=== PATIENT | female | born 1980 | race Caucasian/White ===

== ENCOUNTER 2019-02-25 21:06 | Emergency (ER) | payer MEDICAID, SELFPAY ==
[2019-02-25 21:08] VITALS: BP 147/94; PULSE 104; RESP 18; TEMP 36.8; O2SAT 97; BMI 33.7
[2019-02-25 22:12] VITALS: PULSE 89; RESP 15; O2SAT 99
--- NOTE | 2019-02-25 22:53 | ED.VIS.GEN ---
History of Present Illness Chief Complaint: Allergic Reaction Detail of Chief Complaint: Eczema and infection Informant: Patient Onset: Days Context: Gradual Onset Current Severity: Moderate Maximum Severity: Moderate Narrative: Patient has a history of eczema. She states that she was seen in urgent care mid last week because her eczema got worse and she got some skin infection from the lesions. She was started on Bactrim but did not start that until the evening of February 22. Since that time she has had increased itching and redness. She does not remember if she has ever been on Bactrim previously. She has not had fever or chills. She recently moved to this area does not have doctors in [place]. Past Medical History - Allergies and Home Meds Allergies/Adverse Reactions: Allergies No Known Allergies Allergy (Verified 02/25/19 21:08) Primary Care Physician: Ford Juarez MD [STAFF PHYSICIAN] - Prior records reviewed: Yes Past Medical History: - - Reviewed Smoking Status: Current every day smoker Review of Systems General: Denies: Chills, Fever Eyes: Denies: Visual changes - bilaterally ENT: Denies: Bilateral ear pain Cardiovascular: Denies: Chest pain Respiratory: Denies: Dyspnea Gastrointestinal: Denies: Abdominal pain, Nausea, Vomiting, Diarrhea Genitourinary: Denies: Dysuria Skin: Reports: Rash, Wounds Psych: Denies: Depression Hematologic: Denies: Easy bruising Allergy: Denies: Swelling of the mouth, Swelling of the tongue Physical Exam Vital Signs/Narrative: Vital Signs Temp Pulse Resp BP Pulse Ox 02/25/19 22:12 89 15 99 02/25/19 21:08 98.2 F 104 H 18 147/94 H 97 Inital Vital Signs reviewed: Yes General: Well nourished ENT: Moist mucous membranes Cardiovascular: Regular rate, Regular rhythm Respiratory: No distress, CTA bilaterally Abdomen: Soft, Nontender Skin: - - Patient has scattered areas of dry skin consistent with eczema. She also has multiple areas of folliculitis with small tiny pustules. The bilateral axilla have small, superficial cutaneous abscesses. Nothing that requires drainage at this time. She also has some generalized skin erythema with slight edema more consistent with allergic drug reaction. No intraoral lesions are noted. Neurological: Alert, Oriented x3 Psychological: Normal affect Diagnostic/Tx/Re-eval - Medical Decision Making Patient will be treated with Benadryl and prednisone. We will switch her antibiotic from Bactrim to clindamycin. She will be referred to dermatology here locally and she will call to see if her insurance is accepted. ED Disposition - Plan for ED Patient: Disposition: Home or Assisted Living Diagnosis: Eczema, Folliculitis, Cutaneous abscess, Allergic drug reaction Instructions: ABSCESS, Antiobiotic Treatment Only, ALLERGIC REACTION, Drug, Folliculitis Prescriptions: Clindamycin [Cleocin] 300 mg PO 4X/DAY #80 cap Prescription Printed Prednisone [Deltasone] 40 mg PO DAILY #10 tab Prescription Printed Referrals: Ford Juarez MD [STAFF PHYSICIAN] - Additional Instructions: STOP TAKING YOUR BACTRIM. You have been written for Clindamycin instead.
[2019-02-25] MEDS: DiphenhydrAMINE 25 MG Capsule 50 MG PO (23:06)
[2019-02-25] MEDS: predniSONE 20 MG Tablet 60 MG PO (23:06)
[2019-02-25 23:12] VITALS: PULSE 92; RESP 16; O2SAT 98
== END 2019-02-25 23:13 | disposition home or self-care (01) ==
PROVIDERS: Emergency Provider Emergency Medicine; Family Provider Family Medicine; PCP Family Medicine
DX: L30.9 Dermatitis, unspecified (principal); L73.9 Follicular disorder, unspecified; L02.412 Cutaneous abscess of left axilla; L02.411 Cutaneous abscess of right axilla; T36.8X5A Adverse effect of other systemic antibiotics, initial encounter; Y92.9 Unspecified place or not applicable; F17.200 Nicotine dependence, unspecified, uncomplicated
CPT/HCPCS: 99283

== ENCOUNTER 2019-02-27 22:27 | Emergency (ER) | payer MEDICAID, SELFPAY ==
[2019-02-27 22:29] VITALS: BP 168/119; PULSE 90; RESP 18; TEMP 37; O2SAT 99; BMI 33.8
--- NOTE | 2019-02-27 22:52 | ED.VIS.GEN ---
History of Present Illness Chief Complaint: Complaint Detail of Chief Complaint: dysuria Informant: Patient Onset: Today Context: Gradual Onset Timing: Intermittent Quality: burning Location: perineal Current Severity: Moderate Maximum Severity: Moderate Associated Symptoms: itchy rash upper chest, face; sore rash left axilla/chest wall Narrative: Patient states she has a history of eczema, boils, often times she gets flareups of both simultaneously and needs to do antibiotics and steroids. She was seen here initially for one such flareup with a painful rash in her left axilla and chest wall, she was put on Bactrim, and subsequently broke out in an itchy urticarial rash. She returned here and was seen again, the Bactrim was discontinued and she was placed on clindamycin as well as prednisone, she still has the itchy rash. She states these areas feels hot. She denies any fevers. No other new symptoms. No shortness of breath, lightheadedness or syncope, no peripheral edema. She states she was out in the sun but this was before she started either of these antibiotics, when she got a sunburn. - Past Medical History (1) Eczema Status: Chronic Past Medical History - Allergies and Home Meds Allergies/Adverse Reactions: Allergies No Known Allergies Allergy (Verified 02/25/19 21:08) Primary Care Physician: Liz Vail [Primary Care Provider] - Lives: Spouse/ Significant Other Smoking Status: Current every day smoker Drugs: None Review of Systems General: Reports: Malaise - I feel dehydrated. Denies: Chills, Fever, Sweats Cardiovascular: Denies: Chest pain, Heart racing Respiratory: Denies: Dyspnea, Cough Gastrointestinal: Denies: Abdominal pain, Nausea, Vomiting, Diarrhea, Melena, Hematochezia Genitourinary: Reports: Dysuria, Frequency. Denies: Hematuria Skin: Reports: Rash Neurological: Denies: Headache, Weakness, Numbness Physical Exam Vital Signs/Narrative: Vital Signs Temp Pulse Resp BP Pulse Ox 02/27/19 22:29 98.6 F 90 18 168/119 H 99 Inital Vital Signs reviewed: Yes General: Well nourished, Well developed, No Acute Distress Head: Normocephalic, Atraumatic Eyes: Perrl, EOMI. Negative for: Pale conjunctiva, Scleral icterus ENT: Moist mucous membranes, No rhinorrhea, - - POP clear. Negative for: Sinus tenderness Neck: Supple, Nontender, No lymphadenopathy Cardiovascular: Regular rate, Regular rhythm, No murmurs. Negative for: Tachycardia Respiratory: No distress, CTA bilaterally, Chest nontender Abdomen: Soft, Nontender, Nondistended, Normal bowel sounds Back: Nontender, Normal Inspection. Negative for: CVA tenderness Extremities: Nontender, No edema Skin: Normal color, No Trauma, Rash - Mildly tender follicular erythematous rash left axilla and chest wall. Scars consistent with hidradenitis suppurativa left axilla without any focal tenderness or fluctuance or abscess. The rest of her upper chest wall and anterior neck and face appears to be a coalescent urticarial rash that blanches without purpura or petechiae. Negative Nikolsky sign. No mucous membrane lesions. Neurological: Alert, Oriented x3, Cranial nerves II-XII grossly intact, Normal Strength, Normal Sensation, Normal Gait Psychological: Normal affect, Normal Mood Diagnostic/Tx/Re-eval Laboratory Tests 02/27/19 Range/Units 23:04 Urine Color Yellow (Yellow) Urine Clarity Sl. Cloudy (Clear) Urine pH 5.0 (5.0 - 8.0) Ur Specific [place] 1.025 (1.002-1.030) Urine Protein 30 H (Negative) mg/dl Urine Glucose (UA) Normal (Normal) mg/dl Urine Ketones 5 H (Negative) mg/dl Urine Occult Blood 50 H (Negative) /ul Urine Nitrite Negative (Negative) Urine Bilirubin Negative (Negative) mg/dL Urine Urobilinogen Normal (Normal) mg/dl Ur Leukocyte Esterase 500 H (Negative) /ul Urine RBC 5-10 SEEN (0-5) /hpf Urine WBC 25-50 SEEN (0-5) /hpf Ur Squamous Epith Cells 5-10 SEEN (5-10) /hpf Urine Bacteria 2+ (None Seen) /hpf Urine Mucus 0 SEEN (<or=2+) /hpf - Medical Decision Making Urinalysis is consistent with infection. This was sent for culture, she will be started on Macrobid which is less likely to give her reaction, diarrhea, or a yeast infection. She feels like she still has a boil even though it partially drained in her perineal area or groin. She does not want me to look at it. She gets these all the time she states, she feels that she still needs the oral antibiotics so I would continue the clindamycin until it is gone, and the prednisone as well. I do not think she has Saavedra-Jose syndrome. She could have had a drug rash from the sulfa which she discontinued and will not restart. She could also be having a photosensitivity reaction from the clindamycin. At this time I would continue that given the risks and benefits, and also the Macrobid for 5 days. She really wanted IV fluids because she felt dry and did not feel like drinking so we gave her a liter of fluids in addition. ED Disposition - Plan for ED Patient: Disposition: Home or Assisted Living Diagnosis: Acute cystitis without hematuria, Allergic drug rash Instructions: Bladder Infection, Female (Adult) Prescriptions: Nitrofurantoin Macrocrystals [Macrobid] 100 mg PO Q12 #10 cap Prescription Printed Referrals: Liz Vail [Primary Care Provider] - 3-5 Days
[2019-02-27 23:09] LABS: Mucous, Urine 0 SEEN /hpf (<or=2+)
[2019-02-27 23:11] LABS: Color, Urine Yellow (Yellow); Glucose, Dipstick Normal (Normal); Ketone-Dipstick 5 mg/dl (Negative); Leukocyte Esterase-Dipstick 500 /ul (Negative); Nitrite-Dipstick Negative (Negative); Occult Blood-Urine 50 /ul (Negative); Protein-Dipstick 30 mg/dl (Negative); Specific Gravity, Urine 1.025 (1.002-1.030); Urine Bilirubin Dipstick Negative (Negative); Urine Clarity Sl. Cloudy (Clear); Urine Urobilinogen Normal (Normal)
[2019-02-27] MEDS: 0.9% Normal Saline 1,000 ML 999 ML IV (23:11)
[2019-02-27] MEDS: DiphenhydrAMINE 50 MG/ML Syringe 25 MG IV (23:11)
[2019-02-27 23:17] LABS: Bacteria 2+ /hpf (None Seen); Red Blood Cells-Urine 5-10 SEEN /hpf (0-5); Squamous Epithelial Cells - UA 5-10 SEEN /hpf (5-10); White Blood Cells 25-50 SEEN /hpf (0-5)
[2019-02-28] MEDS: Nitrofurantoin Macrocrystals 100 MG Capsule PO
[2019-02-28 00:08] VITALS: BP 159/85; PULSE 53; RESP 16; O2SAT 100
--- NOTE | 2019-02-28 00:09 | ED.RN ---
REVIEWED D/C INSTRUCTIONS, FOLLOW UP CARE, PRESCRIPTION, AND S/S THAT WOULD WARRANT A RETURN TO THE ED WITH PT. PT VERBALIZED AN UNDERSTANDING AND DENIES FURTHER QUESTIONS FOR THIS RN. PT SKIN P/W/D, RESP EVEN AND UNLABORED, PT A&O X 3, NO DISTRESS NOTED. PT AMBULATED OUT OF ED, GAIT STEADY.
== END 2019-02-28 00:10 | disposition home or self-care (01) ==
PROVIDERS: Emergency Provider Emergency Medicine; Family Provider Family Medicine; PCP Family Medicine
DX: N30.00 Acute cystitis without hematuria (principal); L50.0 Allergic urticaria; F17.200 Nicotine dependence, unspecified, uncomplicated
CPT/HCPCS: 81001; 87086; 87088; 96361; 96374; 99284; J7030; A4216

== ENCOUNTER 2019-03-03 12:11 | Emergency (ER) | payer MEDICAID, SELFPAY ==
[2019-03-03 12:12] VITALS: BP 177/119; PULSE 102; RESP 16; TEMP 36.8; O2SAT 98; BMI 33.7
--- NOTE | 2019-03-03 12:46 | CT_ITS ---
STUDY: CT PELVIS WITH CONTRAST REASON FOR EXAM: Female, 38 years old. Swelling of the vulva, allergic reaction to medication for UTI RADIATION DOSAGE (If Supplied By Facility): CTDIvol = ( 28.20 ) mGy, DLP = ( 1209.25 ) mGycm TECHNIQUE: Transaxial imaging of the pelvis was performed without oral contrast. 100 IV Isovue 300 was administered intravenously. Individualized dose optimization techniques were used for this CT. COMPARISON: None. FINDINGS: Normal urinary bladder. Normal visualized small intestine. Normal visualized colon. There is no pelvic fluid. There is no pelvic lymphadenopathy or mass lesion. Normal visualized pelvic arteries. No focal fluid collection of the abdominal wall or vulvar region. There are reactive appearing lymph nodes in the bilateral inguinal creases with short axis measuring up to 1.2 cm. Normal osseous structures. CT/Pelvis WITH IV Contrast IMPRESSION: 1. No focal fluid collection. Reactive inguinal adenopathy. Electronically Signed: Scar Rajput MD ([place]) at 14:08 EDT , Service support ,
--- NOTE | 2019-03-03 12:46 | ED.VIS.GEN ---
History of Present Illness Chief Complaint: Female C/O Informant: Patient Onset: Days Current Severity: Moderate Maximum Severity: Moderate Narrative: Patient presents with complaint of vulvar pain and swelling. She is a history of severe eczema and hidradenitis. She was recently started on Bactrim at an outside facility. She presented here with what she believed was an allergic reaction. Antibiotics were switched to clindamycin and she was given prednisone. Patient states 2 days later she developed dysuria. She was seen back in the emergency room but refused a exam. Urine did show sign of infection and she was started on Macrobid. Patient presents back today saying the pain and swelling is worse. She is a hard time walking. She states it is so painful she has difficulty wiping and keeping herself clean. Past Medical History - Allergies and Home Meds Allergies/Adverse Reactions: Allergies sulfamethoxazole [From Bactrim] Allergy (Verified 03/03/19 12:15) Hives trimethoprim [From Bactrim] Allergy (Verified 03/03/19 12:15) Hives Primary Care Physician: Liz Vail [Primary Care Provider] - Prior records reviewed: Yes Past Medical History: - - Reviewed Smoking Status: Current every day smoker Review of Systems General: Reports: Chills. Denies: Fever Eyes: Denies: Visual changes - bilaterally ENT: Denies: Bilateral ear pain Cardiovascular: Denies: Chest pain Respiratory: Reports: Dyspnea Gastrointestinal: Denies: Abdominal pain, Nausea, Vomiting Genitourinary: Reports: Dysuria, - - Vulvar pain and swelling. Skin: Reports: Rash, Abscess Neurological: Denies: Headache Psych: Reports: Anxiety Endocrine: Denies: Polyuria, Polydipsia Allergy: Denies: Uticaria Physical Exam Vital Signs/Narrative: Vital Signs Temp Pulse Resp BP Pulse Ox 03/03/19 12:12 98.2 F 102 H 16 177/119 H 98 Inital Vital Signs reviewed: Yes General: Well nourished, Well developed Head: Normocephalic ENT: Moist mucous membranes Neck: Supple Cardiovascular: Regular rate, Regular rhythm Respiratory: No distress, CTA bilaterally Abdomen: Soft, Nontender : - - Patient has vulvar swelling bilaterally. Inner border of the labia majora are coated with what appears to be yeast and bacterial infection. I do not see lesions consistent with herpes. She does have a small palpable cutaneous abscess of the left lower mons. Skin: - - Mild skin dryness and erythema to the trunk and around her eyes consistent with her eczema outbreaks. Neurological: Alert, Oriented x3 Psychological: Tearful Diagnostic/Tx/Re-eval Impressions Pelvis CT 03/03/19 12:46 IMPRESSION: 1. No focal fluid collection. Reactive inguinal adenopathy. Electronically Signed: Scar Rajput MD ([place]) at 14:08 EDT , Service support , 03/03/19 12:46 CT Pel [Pelvis WITH IV Contrast] [CT] Stat Laboratory Results 03/03/19 03/03/19 03/03/19 13:00 13:00 13:00 WBC 13.5 H RBC 5.25 Hgb 16.0 H Hct 47.3 H MCV 90.1 MCH 30.5 MCHC 33.8 RDW Std Deviation 37.7 RDW Coeff of James 11.4 L Plt Count 219 MPV 9.9 Immature Gran % (Auto) 1.700 H Neut % (Auto) 69.6 Lymph % (Auto) 18.2 L [place] % (Auto) 9.5 Eos % (Auto) 0.6 Baso % (Auto) 0.4 Absolute Neuts (auto) 9.4 H Absolute Lymphs (auto) 2.46 Nucleated RBC % 0 Sodium 139 Potassium 3.6 Chloride 108 H Carbon Dioxide 26.0 Anion Gap 5 BUN 13 Creatinine 1.11 H Estim Creat Clear Calc 58.18 Est GFR (MDRD) Af Amer 70 Est GFR (MDRD) Non-Af 58 L BUN/Creatinine Ratio 11.7 Glucose 122 H Calcium 9.2 Serum , Qual NEGATIVE Urine Color Urine Clarity Urine pH Ur Specific [place] Urine Protein Urine Glucose (UA) Urine Ketones Urine Occult Blood Urine Nitrite Urine Bilirubin Urine Urobilinogen Ur Leukocyte Esterase Urine RBC Urine WBC Ur Squamous Epith Cells Urine Bacteria Urine Mucus Urine Yeast 03/03/19 14:44 WBC RBC Hgb Hct MCV MCH MCHC RDW Std Deviation RDW Coeff of James Plt Count MPV Immature Gran % (Auto) Neut % (Auto) Lymph % (Auto) [place] % (Auto) Eos % (Auto) Baso % (Auto) Absolute Neuts (auto) Absolute Lymphs (auto) Nucleated RBC % Sodium Potassium Chloride Carbon Dioxide Anion Gap BUN Creatinine Estim Creat Clear Calc Est GFR (MDRD) Af Amer Est GFR (MDRD) Non-Af BUN/Creatinine Ratio Glucose Calcium Serum , Qual Urine Color Straw Urine Clarity Sl. Cloudy Urine pH 6.5 Ur Specific [place] 1.015 Urine Protein 30 H Urine Glucose (UA) Normal Urine Ketones Negative Urine Occult Blood 250 H Urine Nitrite Negative Urine Bilirubin Negative Urine Urobilinogen Normal Ur Leukocyte Esterase 500 H Urine RBC 0-5 SEEN Urine WBC >100 SEEN Ur Squamous Epith Cells 10-25 SEEN Urine Bacteria 2+ Urine Mucus 0 SEEN Urine Yeast 1+ - Medical Decision Making Patient was initially given a small dose of Dilaudid and Phenergan for pain control. She was given p.o. Diflucan. Test results are reviewed with her. I believe she has vulvovaginitis secondary to yeast infection, likely secondary to her recent steroid and antibiotics. Her urine still shows sign of infection. She will stop Macrobid and take Cipro. I will send another urine culture as the last one was contaminated. Patient was advised of the importance of cleaning herself well. She will be written for clotrimazole cream which she is to apply twice a day. She will be given a prescription for another tab of Diflucan to take in 3 days. She will be referred to Dr. Adria Caal for follow-up as she does not have an CHILD NEUROLOGIST in this area established. ED Disposition - Plan for ED Patient: Disposition: Home or Assisted Living Diagnosis: Vulvovaginitis jens albicans, Cystitis Instructions: Vaginal Infection: Yeast (Candidiasis), Bladder Infection, Female (Adult) Prescriptions: Ciprofloxacin [Cipro] 500 mg PO BID #14 tablet Clotrimazole [Clotrimazole AF] 30 gm TP BID #1 tube Fluconazole [Diflucan] 150 mg PO X1 #1 tablet Hydrocodone Bitart/Apap 5-325 [Cabot 5MG-325MG] 1 tablet PO Q6H PRN PRN 3 Days #10 tablet PRN Reason: Pain Referrals: Caro Damian MD [STAFF PHYSICIAN] - 1 Week
[2019-03-03] MEDS: proMETHazine 25 MG/ML Syringe 12.5 MG IV (12:59)
[2019-03-03] MEDS: HYDROmorphone 1 MG/ML Syringe 0.5 MG IV (13:00)
[2019-03-03] MEDS: 0.9% Normal Saline 1,000 ML 150 ML IV (13:02)
[2019-03-03 13:11] LABS: Absolute Lymphocyte Count 2.46 X10^3/uL (0.83-4.51); Absolute Neutrophil Count 9.4 X10^3/uL (2.0-7.7); Basophil# 0.05 X10^3/uL; Basophil% 0.4 % (0-1); Eosinophil# 0.08 X10^3/uL; Eosinophils% 0.6 % (0-5); Hematocrit 47.3 % (37-47); Lymphocyte # 2.46 X10^3/ul (4.0); Lymphocyte % 18.2 % (19-41); Mean Corp Hgb Conc 33.8 g/dL (32-36); Mean Corpuscular Hgb 30.5 pg (27.0-32.0); Mean Corpuscular Volume 90.1 fL (81-99); Mean Platelet Vol. 9.9 fl (6.2-12.0); Monocyte# 1.29 X10^3/uL; Monocyte% 9.5 % (0-10); NRBC Flagged by Analyzer 0 % (0-5); Neutrophil # 9.43 X10^3/uL (2.7-7.7); Neutrophil % 69.6 % (47-70); Platelet Count 219 K/mm3 (150-450); RBC Distribution Width CV 11.4 % (11.6-14.6); RBC Distribution Width SD 37.7 fl (35.1-43.9); Red Blood Count 5.25 M/mm3 (4.2-5.4); White Blood Count 13.5 K/mm3 (4.4-11.0)
[2019-03-03 13:28] LABS: Internal QC Validated? YES +Cl - CLEAR BKGD; Pregnancy, Serum, hCG Quali. NEGATIVE Negative
[2019-03-03 13:32] LABS: Anion Gap 5 (5-15); BUN 13 mg/dL (7-18); BUN/Creat Ratio 11.7 RATIO (10-20); Calcium,Total 9.2 mg/dL (8.5-10.1); Chloride 108 mmol/L (98-107); Creatinine, Serum 1.11 mg/dL (0.55-1.02); EST Glomerular Filtration Rate 58 mL/min (>60); Est Glom Filt Rate - Afr Amer 70 mL/min (>60); Estimated Creatinine Clearance 58.18 ml/min; Glucose 122 mg/dL (74-106); Potassium 3.6 mmol/L (3.5-5.1); Sodium Level 139 mmol/L (136-145)
[2019-03-03] MEDS: Fluconazole 100 MG Tablet 200 MG PO (13:55)
[2019-03-03 14:12] VITALS: RESP 12
[2019-03-03 14:54] LABS: Mucous, Urine 0 SEEN /hpf (<or=2+)
[2019-03-03 14:57] LABS: Color, Urine Straw (Yellow); Glucose, Dipstick Normal (Normal); Ketone-Dipstick Negative (Negative); Leukocyte Esterase-Dipstick 500 /ul (Negative); Nitrite-Dipstick Negative (Negative); Occult Blood-Urine 250 /ul (Negative); Protein-Dipstick 30 mg/dl (Negative); Specific Gravity, Urine 1.015 (1.002-1.030); Urine Bilirubin Dipstick Negative (Negative); Urine Clarity Sl. Cloudy (Clear); Urine Urobilinogen Normal (Normal); Urine pH 6.5 (5.0 - 8.0)
[2019-03-03 15:10] LABS: White Blood Cells >100 SEEN /hpf (0-5)
[2019-03-03 15:12] LABS: Bacteria 2+ /hpf (None Seen); Red Blood Cells-Urine 0-5 SEEN /hpf (0-5); Squamous Epithelial Cells - UA 10-25 SEEN /hpf (5-10); Yeast-Urine 1+ /hpf (None Seen)
[2019-03-03] MEDS: Ceftriaxone 1 GM/50 ML BAG IV (16:04)
[2019-03-03 16:52] VITALS: BP 185/92; PULSE 55; RESP 16; O2SAT 98
== END 2019-03-03 16:53 | disposition home or self-care (01) ==
PROVIDERS: Emergency Provider Emergency Medicine; Family Provider Family Medicine; PCP Family Medicine
DX: B37.3 Candidiasis of vulva and vagina (principal); N30.90 Cystitis, unspecified without hematuria; L02.215 Cutaneous abscess of perineum; L73.2 Hidradenitis suppurativa; L30.9 Dermatitis, unspecified; F41.9 Anxiety disorder, unspecified; F17.200 Nicotine dependence, unspecified, uncomplicated
CPT/HCPCS: 72193; 80048; 81001; 84703; 85025; 87086; 87088; 96361; 96365; 96374; 96375; 99283; J7030; J7050; Q9967; A4216

== ENCOUNTER → 2019-10-25 13:09 | Outpatient (CLI) | payer MEDICAID, SELFPAY ==
[2019-10-25 15:13] LABS: Absolute Lymphocyte Count 2.26 X10^3/uL (0.83-4.51); Absolute Neutrophil Count 5.8 X10^3/uL (2.0-7.7); Basophil# 0.03 X10^3/uL; Basophil% 0.3 % (0-1); Eosinophil# 0.07 X10^3/uL; Eosinophils% 0.8 % (0-5); Hematocrit 49.4 % (37-47); Hemoglobin 16.1 g/dL (12.0-15.0); Lymphocyte # 2.26 X10^3/ul (4.0); Lymphocyte % 25.6 % (19-41); Mean Corp Hgb Conc 32.6 g/dL (32-36); Mean Corpuscular Hgb 30.6 pg (27.0-32.0); Mean Corpuscular Volume 93.9 fL (81-99); Mean Platelet Vol. 10.6 fl (6.2-12.0); Monocyte# 0.62 X10^3/uL; NRBC Flagged by Analyzer 0 % (0-5); Neutrophil # 5.78 X10^3/uL (2.7-7.7); Neutrophil % 65.6 % (47-70); Platelet Count 229 K/mm3 (150-450); RBC Distribution Width CV 11.7 % (11.6-14.6); RBC Distribution Width SD 40.2 fl (35.1-43.9); Red Blood Count 5.26 M/mm3 (4.2-5.4); White Blood Count 8.8 K/mm3 (4.4-11.0)
[2019-10-25 15:34] LABS: AST(SGOT) 13 U/L (15-37); Alanine Aminotransfer ALT/SGPT 27 U/L (13-56); Albumin, Serum 3.9 g/dL (3.2-5.0); Alkaline Phosphatase 90 U/L (45-117); Anion Gap 8 (5-15); BUN 9 mg/dL (7-18); BUN/Creat Ratio 9.5 RATIO (10-20); Calcium,Total 8.9 mg/dL (8.5-10.1); Chloride 104 mmol/L (98-107); Cholesterol 191 mg/dL (200); Creatinine, Serum 0.94 mg/dL (0.55-1.02); EST Glomerular Filtration Rate 69 mL/min (>60); Est Glom Filt Rate - Afr Amer 84 mL/min (>60); Globulin 3.4 g/dL (2.2-4.2); Glucose 149 mg/dL (74-106); High Density Lipoprotein 38 mg/dL; Potassium 3.8 mmol/L (3.5-5.1); Protein, Total 7.3 g/dL (6.4-8.2); Sodium Level 136 mmol/L (136-145); Triglycerides 122 mg/dL; Very Low Density Lipoprotein 24 mg/dL (5-40)
[2019-10-25 16:23] LABS: Hepatitis B Surface Antibody Non-Reactive; Hepatitis B Surface Antigen Non-Reactive (Nonreactive); Hepatitis C Antibody Non-Reactive (Nonreactive)
[2019-10-28 03:06] LABS: QNTFERON TB Mitogen Value > 10.00 IU/mL (.); QNTFERON TB Nil Value 0.01 IU/mL (.); QNTFERON TB1+ Ag Value 0.04 IU/mL (.); QNTFERON TB2+ Ag Value 0.02 IU/mL (.)
[2019-10-28 15:58] LABS: Hepatitis B Core Ab Total Negative (Negative); QNTIFERON TB Positive Criteria Negative (Negative)
== END ==
PROVIDERS: PCP Family Medicine; Referring Provider Physician Assistant Medical; Visit Provider Physician Assistant Medical
DX: L73.2 Hidradenitis suppurativa (principal); L20.84 Intrinsic (allergic) eczema; Z79.899 Other long term (current) drug therapy
CPT/HCPCS: 36415; 80048; 80061; 80076; 85025; 86480; 86704; 86706; 86803; 87340

== ENCOUNTER → 2020-11-10 14:29 | Outpatient (CLI) | payer OTHER, MEDICAID, SELFPAY ==
[2020-11-17 05:07] LABS: QNTFERON TB Mitogen Value > 10.00 IU/mL (.); QNTFERON TB Nil Value 0 IU/mL (.); QNTFERON TB1+ Ag Value 0 IU/mL (.); QNTFERON TB2+ Ag Value 0 IU/mL (.)
[2020-11-17 11:54] LABS: QNTIFERON TB Positive Criteria Negative (Negative)
== END ==
PROVIDERS: PCP Family Medicine; Referring Provider Physician Assistant Medical; Visit Provider Physician Assistant Medical
DX: L73.2 Hidradenitis suppurativa (principal); Z79.899 Other long term (current) drug therapy
CPT/HCPCS: 36415; 86480

== ENCOUNTER 2021-10-30 13:31 | Emergency (ER) | payer OTHER, MEDICAID, SELFPAY ==
[2021-10-30 13:32] VITALS: BP 194/113; PULSE 69; RESP 18; TEMP 36.1; O2SAT 100; BMI 30.9
--- NOTE | 2021-10-30 13:50 | CT_ITS ---
STUDY: CT ABDOMEN AND PELVIS WITHOUT CONTRAST REASON FOR EXAM: Female, 41 years old. Pain RADIATION DOSAGE (If Supplied By Facility): CTDIvol = ( 14.10 ) mGy, DLP = ( 686.69 ) mGycm TECHNIQUE: Transaxial images were obtained from the dome of the diaphragm to the symphysis pubis without oral contrast, and without intravenous contrast. Sagittal and coronal images were reconstructed. Individualized dose optimization techniques were used for this CT. COMPARISON: None. FINDINGS: The visualized lung bases are unremarkable. The visualized portions of the heart are within normal limits. There is decreased attenuation of the liver consistent with steatosis. Normal gallbladder and extrahepatic biliary system. Normal spleen. Normal pancreas. Normal bilateral adrenal glands. Slight right hydronephrosis and periureteral stranding within the mid right ureter calculus measuring 2-3 mm. Normal left kidney. Normal visualized stomach. Normal small intestine. There are multiple colonic diverticula consistent with diverticulosis. The appendix is visualized and appears normal. Normal abdominal aorta. Normal inferior vena cava. Normal retroperitoneum. Normal urinary bladder. Normal abdominal wall. Normal osseous structures. CT/Abdomen/Pelvis without Cont IMPRESSION: Trace right hydronephrosis with right mid ureter calculus (2-3 mm). Electronically Signed: Scar Rajput MD ([place]) at 16:04 EDT ,
--- NOTE | 2021-10-30 13:51 | EDS_ITS ---
HPI History of Present Illness Chief Complaint: Flank Pain Informant: patient Narrative Narrative: Patient presents with right flank pain. It sounds like it started a little bit yesterday but it bothered her a lot more last night and this morning. When the pain is bad she gets nauseated and has vomited a few times but no blood. It does radiate a little bit toward the front but mostly stays in the right posterior flank. She denies any urinary symptoms. She has had a kidney stone once years ago and this reminds her a bit of that. She has not had any biliary disease or cholecystectomy. No intra-abdominal surgeries. Nothing really makes the pain better or worse. Of note, patient states she was on medicines for diabetes and high blood pressure but she was not sure about it and has not been taking it for a long time. PFSH PFSH Home Medications clindamycin HCl 300 mg PO 4X/DAY #80 cap 02/25/19 [Rx Last Taken Unknown] prednisone 40 mg PO DAILY #10 tab 02/25/19 [Rx Last Taken Unknown] nitrofurantoin monohyd/m-cryst 100 mg PO Q12 #10 cap 02/27/19 [Rx Last Taken Unknown] ciprofloxacin HCl 500 mg PO BID #14 tab 03/03/19 [Rx Last Taken Unknown] clotrimazole 30 gm TP BID #1 tube 03/03/19 [Rx Last Taken Unknown] fluconazole 150 mg PO X1 #1 tab 03/03/19 [Rx Last Taken Unknown] ondansetron 4 mg PO Q8H PRN #10 tab 10/30/21 [Rx Last Taken Unknown] oxycodone-acetaminophen [Percocet] 1 tab PO Q6H PRN 3 Days #12 tab 10/30/21 [Rx Last Taken Unknown] tamsulosin [Flomax] 0.4 mg PO DAILY #7 cap 10/30/21 [Rx Last Taken Unknown] Allergy/AdvReac Type Severity Reaction Status Date / Time sulfamethoxazole Allergy Hives Verified 10/30/21 13:31 [From Bactrim] trimethoprim [From Bactrim] Allergy Hives Verified 10/30/21 13:31 Social History Smoking Status: Current every day smoker tobacco type: cigarettes ROS ROS ED Constitutional Constitutional ED: Denies chills or fever(s) ENT ENT ED: Denies rhinorrhea Cardiovascular Cardiovascular: Denies chest pain or palpitations Respiratory/Chest Respiratory/Chest: Denies cough or dyspnea Gastrointestinal Gastrointestinal: Reports nausea, vomiting and other Details: Right flank pain. See history of present illness. Genitourinary Genitourinary ED: Denies dysuria, hematuria or urinary frequency Musculoskeletal Musculoskeletal: Reports back pain; Denies myalgias Integumentary Denies rash Neurologic Neurologic: Denies headache(s), paresthesias or weakness Psychiatric Psychiatric: Denies anxiety or depression Endocrine Endocrinology: Denies polydipsia or polyuria Allergic/Immunologic Allergic/Immunologic ED: Denies urticaria EXAM Physical Exam Const Vital Signs: 10/30/21 13:32 10/30/21 14:25 10/30/21 15:22 Temperature 97 F L Temperature Source Temporal Pulse Rate 69 67 Respiratory Rate 18 16 Blood Pressure 194/113 H 123/74 H 143/89 H Blood Pressure Mean 140 90 107 Pulse Ox 100 100 100 Oxygen Delivery Method Room Air Room Air Room Air Positive well nourished and well developed General Appearance ED: well developed and NAD HEENT Reports moist mucous membranes Negative for trauma or tenderness Eyes General Eye ED: Negative for pale conjunctiva or scleral icterus Neck no JVD Chest Wall inspection of chest normal Resp No normal respiratory effort and clear to auscultation bilaterally Effort and Inspection: Negative for pain with movement Auscultation: Negative for rales, rhonchi or wheezes Cardio regular rate and regular rhythm GI normal to inspection, nondistended, normoactive bowel sounds, non-tender and non-distended GI Narrative: No tenderness including no tenderness at right upper or right lower quadrant. Palpation: soft Back/Spine Back/Spine Narrative: Mild CVA tenderness only with deep palpation. General Back: CVA tenderness Extremity normal to inspection Neuro Sensorium / Orientation: alert Psych mental status grossly normal Skin no rashes or lesions noted and no wounds Skin Narrative: No vesicles MDM MDM MDM Narrative Medical decision making narrative: Patient's labs show elevated hematocrit. This is likely from her history of COPD and smoking. Electrolytes show no marked abnormalities. No renal dysfunction. However, her glucose is quite elevated at 314. is negative. Urine shows red cells but no sign of infection. CT scan reviewed by me shows a right mid ureteral stone stone with some mild hydro-. As long as radiology sees no other acute process I think we get her home. Her pain is quite a bit better. Is starting to come back a little bit so I will give another dose of pain meds while she is here. Plan will be to get her home on medicines for pain nausea and Flomax. I discussed your blood sugar. She states she just got her prescription of meds in August. She has meds for blood pressure and diabetes. She just has not taken them because she has been resistant to accepting the diagnosis. She does not need prescriptions for further meds. I encouraged her to take these meds as prescribed. She states the doctor that prescribed them was an older doctor that she actually did not see regularly and she would like a new doctor I will refer her to somebody here. She certainly has freedom to follow-up with anyone she likes but she needs to follow-up to get both the renal stone issue managed as well as her diabetes and blood pressure. We also discussed reasons to return. CT reading did come back with mid ureteral 2 to 3 mm calculus with trace hydro-. Lab Data Attestation: I reviewed the patient's lab results. Labs: Laboratory Results - last 24 hr 10/30/21 10/30/21 10/30/21 14:14 14:14 14:14 WBC 11.9 H RBC 6.11 H Hgb 18.8 H* Hct 55.4 H MCV 90.7 MCH 30.8 MCHC 33.9 RDW Std Deviation 38.4 RDW Coeff of James 11.5 L Plt Count 216 MPV 10.3 Immature Gran % (Auto) 0.800 Neut % (Auto) 83.8 H Lymph % (Auto) 9.5 L Pasco % (Auto) 5.3 Eos % (Auto) 0.3 Baso % (Auto) 0.3 Absolute Neuts (auto) 10.0 H Absolute Lymphs (auto) 1.14 Nucleated RBC % 0 Diff Path Review May foll Sodium 133 L Potassium 4.1 Chloride 106 Carbon Dioxide 25.0 Anion Gap 2 L BUN 9 Creatinine 0.99 Estim Creat Clear Calc 63.27 Est GFR (MDRD) Af Amer 79 Est GFR (MDRD) Non-Af 65 BUN/Creatinine Ratio 9.1 L Glucose 314 H Calcium 8.9 Serum , Qual NEGATIVE Urine Color Urine Clarity Urine pH Ur Specific Abrams Urine Protein Urine Glucose (UA) Urine Ketones Urine Occult Blood Urine Nitrite Urine Bilirubin Urine Urobilinogen Ur Leukocyte Esterase Urine RBC Urine WBC Ur Squamous Epith Cells Urine Bacteria Urine Mucus 10/30/21 14:33 WBC RBC Hgb Hct MCV MCH MCHC RDW Std Deviation RDW Coeff of James Plt Count MPV Immature Gran % (Auto) Neut % (Auto) Lymph % (Auto) Pasco % (Auto) Eos % (Auto) Baso % (Auto) Absolute Neuts (auto) Absolute Lymphs (auto) Nucleated RBC % Diff Path Review Sodium Potassium Chloride Carbon Dioxide Anion Gap BUN Creatinine Estim Creat Clear Calc Est GFR (MDRD) Af Amer Est GFR (MDRD) Non-Af BUN/Creatinine Ratio Glucose Calcium Serum , Qual Urine Color Yellow Urine Clarity Clear Urine pH 6.0 Ur Specific Abrams 1.015 Urine Protein 30 H Urine Glucose (UA) 1000 H Urine Ketones 15 H Urine Occult Blood 250 H Urine Nitrite Negative Urine Bilirubin Negative Urine Urobilinogen Normal Ur Leukocyte Esterase 25 H Urine RBC 50-100 SEEN Urine WBC 0-5 SEEN Ur Squamous Epith Cells 0 SEEN Urine Bacteria 2+ Urine Mucus 0 SEEN Discharge Plan Triage Chief Complaint: Flank Pain ED Provider: Wilbur Pretty Dx/Rx/DC Orders Clinical Impression: Right kidney stone, Hyperglycemia, Hypertension Instructions: ED Hypertension New Begin Treatment, ED Kidney Stone w/ Colic Prescriptions: New oxycodone-acetaminophen [Percocet] 5-325 mg tablet 1 tab PO Q6H PRN (Reason: pain) 3 Days Qty: 12 RF: 0 ondansetron 4 mg tablet,disintegrating 4 mg PO Q8H PRN (Reason: nausea and vomiting) Qty: 10 RF: 0 tamsulosin [Flomax] 0.4 mg capsule 0.4 mg PO DAILY Qty: 7 RF: 0 No Action prednisone 20 MG tablet 40 mg PO DAILY Qty: 10 RF: 0 clindamycin HCl 150 MG capsule 300 mg PO 4X/DAY Qty: 80 RF: 0 nitrofurantoin monohyd/m-cryst 100 MG capsule 100 mg PO Q12 Qty: 10 RF: 0 ciprofloxacin HCl 500 MG tablet 500 mg PO BID Qty: 14 RF: 0 fluconazole 150 MG tablet 150 mg PO X1 Qty: 1 RF: 0 clotrimazole 30 GM cream 30 gm TP BID Qty: 1 RF: 2 Primary Care Provider: Liz Vail Referrals: Meli Rolle MD [STAFF PHYSICIAN] - 3-5 Days Liz Vail DO [Primary Care Provider] - As soon as possible Disposition Disposition: Home, Self Care
[2021-10-30] MEDS: Ketorolac 15 MG/ML Vial IV (14:07)
[2021-10-30] MEDS: 0.9% Normal Saline 1,000 ML 1000 ML IV (14:07)
[2021-10-30] MEDS: Morphine 4 MG/ML Syringe IV ×2 (14:08→16:13)
[2021-10-30] MEDS: Ondansetron 4 MG/2 ML Vial IV (14:08)
[2021-10-30 14:25] VITALS: BP 123/74; O2SAT 100
[2021-10-30 14:26] LABS: Absolute Lymphocyte Count 1.14 X10^3/uL (0.83-4.51); Basophil# 0.03 X10^3/uL; Basophil% 0.3 % (0-1); Eosinophil# 0.04 X10^3/uL; Eosinophils% 0.3 % (0-5); Hematocrit 55.4 % (37-47); Lymphocyte # 1.14 X10^3/ul (0.83-4.51); Lymphocyte % 9.5 % (19-41); Mean Corp Hgb Conc 33.9 g/dL (32-36); Mean Corpuscular Hgb 30.8 pg (27.0-32.0); Mean Corpuscular Volume 90.7 fL (81-99); Mean Platelet Vol. 10.3 fl (6.2-12.0); Monocyte# 0.63 X10^3/uL; Monocyte% 5.3 % (0-10); NRBC Flagged by Analyzer 0 % (0-5); Neutrophil % 83.8 % (47-70); Platelet Count 216 K/mm3 (150-450); RBC Distribution Width CV 11.5 % (11.6-14.6); RBC Distribution Width SD 38.4 fl (35.1-43.9); Red Blood Count 6.11 M/mm3 (4.2-5.4); White Blood Count 11.9 K/mm3 (4.4-11.0)
[2021-10-30 14:32] LABS: Hemoglobin 18.8 g/dL (12.0-15.0)
[2021-10-30 14:37] LABS: Anion Gap 2 (5-15); BUN 9 mg/dL (7-18); BUN/Creat Ratio 9.1 RATIO (10-20); Calcium,Total 8.9 mg/dL (8.5-10.1); Chloride 106 mmol/L (98-107); Creatinine, Serum 0.99 mg/dL (0.55-1.02); EST Glomerular Filtration Rate 65 mL/min (>60); Est Glom Filt Rate - Afr Amer 79 mL/min (>60); Estimated Creatinine Clearance 63.27 ml/min; Glucose 314 mg/dL (74-106); Potassium 4.1 mmol/L (3.5-5.1); Sodium Level 133 mmol/L (136-145)
[2021-10-30 14:44] LABS: Mucous, Urine 0 SEEN /hpf (<or=2+); Squamous Epithelial Cells - UA 0 SEEN /hpf (5-10)
[2021-10-30 14:52] LABS: Color, Urine Yellow (Yellow); Glucose, Dipstick 1000 mg/dl (Normal); Ketone-Dipstick 15 mg/dl (Negative); Leukocyte Esterase-Dipstick 25 /ul (Negative); Nitrite-Dipstick Negative (Negative); Occult Blood-Urine 250 /ul (Negative); Protein-Dipstick 30 mg/dl (Negative); Specific Gravity, Urine 1.015 (1.002-1.030); Urine Bilirubin Dipstick Negative (Negative); Urine Clarity Clear (Clear); Urine Urobilinogen Normal (Normal)
[2021-10-30 15:10] LABS: Bacteria 2+ /hpf (None Seen); Red Blood Cells-Urine 50-100 SEEN /hpf (0-5); White Blood Cells 0-5 SEEN /hpf (0-5)
[2021-10-30 15:19] LABS: Internal QC Validated? YES +Cl - CLEAR BKGD; Pregnancy, Serum, hCG Quali. NEGATIVE Negative
[2021-10-30 15:22] VITALS: BP 143/89; PULSE 67; RESP 16; O2SAT 100
[2021-10-30 16:16] VITALS: PULSE 64; O2SAT 99
[2021-11-01 13:22] LABS: Pathologist Review Reviewed
== END 2021-10-30 16:26 | disposition home or self-care (01) ==
PROVIDERS: Emergency Provider Emergency Medicine; PCP Family Medicine; Visit Provider Emergency Medicine
DX: N13.2 Hydronephrosis with renal and ureteral calculous obstruction (principal); J44.9 Chronic obstructive pulmonary disease, unspecified; E11.65 Type 2 diabetes mellitus with hyperglycemia; I10 Essential (primary) hypertension; R11.2 Nausea with vomiting, unspecified; Z87.442 Personal history of urinary calculi; F17.210 Nicotine dependence, cigarettes, uncomplicated
CPT/HCPCS: 74176; 80048; 81001; 84703; 85025; 96361; 96374; 96375; 96376; 99282; J7030; A4216; J2405

== ENCOUNTER → 2022-06-01 | Outpatient (CLI) | payer OTHER, MEDICAID, SELFPAY ==
[2022-06-01 15:13] LABS: Absolute Lymphocyte Count 2.02 X10^3/uL (0.83-4.51); Absolute Neutrophil Count 6.8 X10^3/uL (2.0-7.7); Basophil# 0.04 X10^3/uL; Basophil% 0.4 % (0-1); Eosinophil# 0.05 X10^3/uL; Eosinophils% 0.5 % (0-5); Hematocrit 51.3 % (37-47); Hemoglobin 17.1 g/dL (12.0-15.0); Lymphocyte # 2.02 X10^3/ul (0.83-4.51); Mean Corp Hgb Conc 33.3 g/dL (32-36); Mean Corpuscular Hgb 30.6 pg (27.0-32.0); Mean Corpuscular Volume 91.9 fL (81-99); Mean Platelet Vol. 10.5 fl (6.2-12.0); Monocyte# 0.69 X10^3/uL; Monocyte% 7.2 % (0-10); NRBC Flagged by Analyzer 0 % (0-5); Neutrophil # 6.76 X10^3/uL (2.7-7.7); Neutrophil % 70.1 % (47-70); Platelet Count 264 K/mm3 (150-450); RBC Distribution Width CV 11.8 % (11.6-14.6); RBC Distribution Width SD 39.7 fl (35.1-43.9); Red Blood Count 5.58 M/mm3 (4.2-5.4); White Blood Count 9.6 K/mm3 (4.4-11.0)
[2022-06-01 15:24] LABS: AST(SGOT) 6 U/L (15-37); Alanine Aminotransfer ALT/SGPT 19 U/L (13-56); Albumin, Serum 3.9 g/dL (3.2-5.0); Alkaline Phosphatase 116 U/L (45-117); Bilirubin, Direct 0.14 mg/dL (0.00-0.30); Protein, Total 7.9 g/dL (6.4-8.2)
[2022-06-02 09:28] LABS: HIV - WCH Non-Reactive (Nonreactive); Hepatitis B Surface Antibody Non-Reactive; Hepatitis B Surface Antigen Non-Reactive (Nonreactive); Hepatitis C Antibody Non-Reactive (Nonreactive)
[2022-06-03 18:07] LABS: QNTFERON TB Mitogen Value > 10.00 IU/mL (.); QNTFERON TB Nil Value 0 IU/mL (.); QNTFERON TB1+ Ag Value 0 IU/mL (.); QNTFERON TB2+ Ag Value 0 IU/mL (.)
[2022-06-06 13:32] LABS: Hepatitis B Core Ab Total Negative (Negative); QNTIFERON TB Positive Criteria Negative (Negative)
== END | disposition home or self-care (01) ==
PROVIDERS: PCP Family Medicine; Referring Provider Dermatology; Visit Provider Dermatology
DX: L40.0 Psoriasis vulgaris (principal); L40.8 Other psoriasis; L73.2 Hidradenitis suppurativa; L82.1 Other seborrheic keratosis; D18.01 Hemangioma of skin and subcutaneous tissue; Z71.89 Other specified counseling; Z79.899 Other long term (current) drug therapy
CPT/HCPCS: 36415; 80076; 85025; 86480; 86703; 86704; 86706; 86803; 87340

== ENCOUNTER → 2022-08-01 | Outpatient (CLI) | payer OTHER, MEDICAID, SELFPAY ==
[2022-08-01 18:06] LABS: ALB/GLOB Ratio 1.1 RATIO (0.9-2.4); AST(SGOT) 9 U/L (15-37); Alanine Aminotransfer ALT/SGPT 26 U/L (13-56); Alkaline Phosphatase 101 U/L (45-117); Anion Gap 12 (5-15); BUN 10 mg/dL (7-18); BUN/Creat Ratio 10.5 RATIO (10-20); Calcium,Total 9.5 mg/dL (8.5-10.1); Chloride 102 mmol/L (98-107); Creatinine, Serum 0.95 mg/dL (0.55-1.02); EST Glomerular Filtration Rate 68 mL/min (>60); Est Glom Filt Rate - Afr Amer 82 mL/min (>60); Globulin 3.6 g/dL (2.2-4.2); Glucose 202 mg/dL (74-106); Potassium 4.4 mmol/L (3.5-5.1); Protein, Total 7.6 g/dL (6.4-8.2); Sodium Level 138 mmol/L (136-145)
[2022-08-01 18:10] LABS: Hemoglobin A1c 8.6 % (3.8-5.6)
== END | disposition home or self-care (01) ==
PROVIDERS: PCP Family Medicine; Referring Provider Nurse Practitioner Women's Health; Visit Provider Nurse Practitioner Women's Health
DX: Z01.411 Encounter for gynecological examination (general) (routine) with abnormal findings (principal)
CPT/HCPCS: 36415; 80053; 83036

== ENCOUNTER → 2022-09-21 | Outpatient (CLI) | payer OTHER, MEDICAID, SELFPAY ==
--- NOTE | 2022-09-21 11:24 | RAD_ITS ---
STUDY: X-RAY - LUMBAR SPINE REASON FOR EXAM: Female, 42 years old. Pain. TECHNIQUE: 4 view(s) of the lumbar spine were obtained. COMPARISON: None FINDINGS: Normal lumbar lordosis. There is no substantial scoliosis. There is a normal alignment of the vertebrae. Normal vertebral bodies and endplates. Mild intervertebral disc space narrowing at L4-5 with small osteophytes. The soft tissue structures are unremarkable. RAD/L/S Spine Min 4 Views IMPRESSION: Mild spondylosis at L4-5. No other abnormality. Electronically Signed: Ned Arreola, at 14:26 EST ,
== END | disposition home or self-care (01) ==
PROVIDERS: Visit Provider Nurse Practitioner Family
DX: M54.17 Radiculopathy, lumbosacral region (principal); Z79.899 Other long term (current) drug therapy
CPT/HCPCS: 72110

== ENCOUNTER → 2022-10-19 | Outpatient (CLI) | payer OTHER, MEDICAID, SELFPAY ==
--- NOTE | 2022-10-19 13:41 | BI_ITS ---
MAMMOGRAPHY - BILATERAL SCREENING REASON FOR EXAM: Female, 42 years old. Routine annual screening examination. PERTINENT HISTORY: Aunt with breast cancer. TECHNIQUE: Digital bilateral breast juan pablo (3D mammographic acquisition) in the CC and MLO projections. 2-D mediolateral oblique (MLO) and craniocaudad (CC) views of both breasts were obtained. CAD: Full Field Digital Mammography with Computer Added Detection was performed. COMPARISON: None. Baseline examination. FINDINGS: Breast Composition: The breasts are heterogeneously dense, which may obscure small masses. There is a 1.6 cm x 2 cm nodular density in the upper lateral aspect of the left breast. Correlation with ultrasound is recommended for further evaluation. No other significant abnormalities are identified. BI/SCRN MAMM (CAD)W/JUAN PABLO BILAT IMPRESSION: 1.6 cm x 2 cm nodular density in the upper lateral aspect of the left breast. Correlation with ultrasound is recommended. ASSESSMENT CATEGORY: BIRADS Category 0: Incomplete. Need additional imaging evaluation. A letter regarding these results will be sent to the patient by the facility within 30 days. Approximately 10% of breast cancers are not detected by mammography. A normal mammogram should not delay biopsy of a clinically suspicious abnormality. [id number] Electronically Signed: Antonio Mane MD at 14:21 EDT ,
== END | disposition home or self-care (01) ==
LOC: OPBI 13:38
PROVIDERS: Visit Provider Nurse Practitioner Women's Health
DX: Z12.31 Encounter for screening mammogram for malignant neoplasm of breast (principal)
CPT/HCPCS: 77063; 77067

== ENCOUNTER → 2022-10-25 | Outpatient (CLI) | payer OTHER, MEDICAID, SELFPAY ==
--- NOTE | 2022-10-25 12:37 | US_ITS ---
STUDY: ULTRASOUND BREAST - LEFT REASON FOR EXAM: Female, 42 years old. Abnormal screening mammogram. TECHNIQUE: Axial and longitudinal images of the LEFT breast were performed with a high resolution ultrasound transducer. # OF IMAGES: 55 COMPARISON: Comparison is made with prior mammogram dated October 19, 2022. FINDINGS: LEFT Breast: The mammographic abnormality corresponds to a 2.1 cm x 1.3 cm x 1.8 cm cyst at the 1:00 position of the breast at 5 cm from nipple. There is a 7 mm x 6 mm x 4 mm hypoechoic complex septated cyst with irregular contour at the 2:00 position the breast at 4 cm from nipple. This is not a simple cyst. A biopsy is recommended for further evaluation. US/Breast Limited Unilateral IMPRESSION: The mammographic abnormality corresponds with 2.1 cm x 1.3 cm x 1.8 cm cyst at the 1:00 position of the breast at 5 cm from nipple. There is a 7 mm x 6 mm x 4 mm hypoechoic complex septated cyst with irregular contour at the 2:00 position of the breast at 4 cm from nipple. Biopsy recommended. ASSESSMENT CATEGORY: BIRADS Category 4: Suspicious - Biopsy Should Be Considered. A letter regarding these results will be sent to the patient by the facility within 30 days. Electronically Signed: Antonio Mane MD at 8:23 EDT ,
== END | disposition home or self-care (01) ==
LOC: OPUS 12:36
PROVIDERS: Visit Provider Nurse Practitioner Women's Health
DX: R92.8 Other abnormal and inconclusive findings on diagnostic imaging of breast (principal)
CPT/HCPCS: 76642

== ENCOUNTER → 2022-11-04 | Outpatient (CLI) | payer OTHER, MEDICAID, SELFPAY ==
--- NOTE | 2022-11-04 | BRBX_PTH ---
PATIENT: KYRA GAMBLE LOC: [facility] U#:[id number] AGE/SX: 42/F ROOM: RE11/04/[address]: Dr. Paul Erazo MD : 1980 BED: DIS: 11/04/2022 SPEC #: [id number] RECD: 11/04/22 13:24 STATUS: AAMIR QUIN #: [id number] DARY: 11/04/22 00:[address]: Paul Erazo DEPT: SURGICAL PATHOLOGY RECD BY: Melissa Crandall ENTERED: 11/04/22 13:47 SP TYPE: BREAST BX OTHR DR: No Primary Care Phys Tissues: Left breast, NOS Procedures: Surgery Specimen Level IV HEADER OPERATION: Ultrasound-guided left breast biopsy first lesion PRE-OP DIAGNOSIS: Left breast lesion TISSUE SUBMITTED: Lesion left breast ISCHEMIC TIME: 65 seconds FIXATION TIME: 56 hours MICROSCOPIC DIAGNOSIS Left breast lesion, ultrasound-guided core biopsy: Focal duct ectasia and suggestive of intraductal papilloma. Focal dense fibrosis. Negative for atypia or malignancy. See comment. MUNIR:inocencia 11/07/2022 COMMENT Correlation with clinical, radiologic findings and appropriate follow up are necessary. MICROSCOPIC DESCRIPTION Slides are reviewed. GROSS DESCRIPTION Received in fixative is one container labeled with the patient's name and designated left breast lesion. The specimen consists of multiple fragments of awan-yellow fibroadipose tissue that in aggregate measure 2.0 x 0.5 x 0.1 cm. The entire specimen is submitted in one cassette. / MUNIR:inocencia 11/04/2022 TC:5 CPT: 16344
--- NOTE | 2022-11-04 12:26 | US_ITS ---
ULTRASOUND GUIDED CORE BIOPSY REASON FOR EXAM: Female, 42 years old. ABNORMAL MAMMOGRAM PERTINENT HISTORY: Left breast biopsy COMPARISON: Ultrasound from 10/25/2022 TECHNIQUE: (All elements of maximal sterile barrier technique followed, including US elements as applicable) Procedure performed by Dr. Erazo Upon arrival to the breast imaging department the patient''s identification was confirmed and the LEFT breast was marked according to time-out protocol. Ultrasound guided core biopsy and clip placement, to include potential risks and complications, was explained in full to the patient. Written and verbal consent were obtained prior to initiation of the procedure. The LEFT breast was prepped and draped in standard sterile fashion and local anesthesia was obtained with 1% buffered lidocaine. A small dermatotomy was then made to introduce the core biopsy needle. Under ultrasound guidance multiple core samples were obtained with a 14 gauge needle and submitted in formalin for pathology. A titanium clip was then deployed into the biopsy cavity under ultrasound guidance. Upon completion of the procedure hemostasis was obtained and sterile dressing was applied. The patient tolerated the entire procedure without immediate complication and was discharged from the breast imaging department in good condition. US/US Breast Biopsy 1st Lesion IMPRESSION: Ultrasound guided core biopsy of a mass in the LEFT breast at 2:00, 4 cm from the nipple without complication. An addendum to this report will be rendered with appropriate recommendations when the pathology report is finalized. Electronically Signed: Malachi Hanks MD at 14:05 EDT ,
--- NOTE | 2022-11-04 13:10 | PCM.OPRPT ---
Report of Operation Date of Procedure: 11/04/22 Pre-Operative Diagnosis: Abnormal ultrasound of the left breast Post-Operative Diagnosis: Same Surgery/Procedure Performed:: Ultrasound-guided biopsy of the left breast mass with placement of clip Specimen's removed: Left breast biopsy Description of Procedure: Left breast was imaged downstairs and the tech was able to find the same lesion. An area lateral to this was prepped and draped in usual sterile fashion. Skin was injected with local anesthetic and then a small emmy was made with a scalpel. The biopsy needle was placed into the mass under ultrasound guidance several times and biopsies were obtained. A clip was placed into the mass and deployed. Pressure was held to maintain hemostasis. Next a Steri-Strip and bandage were placed over the incision. Postoperative instructions were given. Patient tolerated the procedure well.
== END | disposition home or self-care (01) ==
PROVIDERS: Referring Provider Surgery; Visit Provider Surgery
DX: N60.32 Fibrosclerosis of left breast (principal); N60.42 Mammary duct ectasia of left breast
CPT/HCPCS: 19083; 88305

== ENCOUNTER → 2023-12-13 | Outpatient (CLI) | payer OTHER, MEDICAID, SELFPAY ==
--- NOTE | 2023-12-13 14:00 | BI_ITS ---
MAMMOGRAPHY - BILATERAL SCREENING 3-D TOMOSYNTHESIS REASON FOR EXAM: Female, 43 years old. SCREENING PERTINENT HISTORY: No significant family history. TECHNIQUE: 2-D mammograms and 3-D Tomosynthesis of the breast (s) were performed. CAD was performed. COMPARISON: 10/19/2022 FINDINGS: The breast composition is heterogeneously dense that can obscure small breast masses. Scattered benign calcifications are seen. No dense spiculated masses or suspicious microcalcifications are identified. No architectural distortion is identified. There is no skin thickening or retraction. There has been no significant change since the prior study. BI/SCRN MAMM (CAD)W/JUAN PABLO BILAT IMPRESSION: No mammographic signs of malignancy. Routine yearly mammograms recommended. ASSESSMENT CATEGORY: BIRADS Category 1: Negative. A letter regarding these results will be sent to the patient by the facility within 30 days. FOLLOW UP RECOMMENDATION: Yearly follow up mammogram recommended. (A) Approximately 10% of breast cancers are not detected by mammography. A normal mammogram should not delay biopsy of a clinically suspicious abnormality. Electronically Signed: Reese Vila MD at 15:22 EDT ,
== END | disposition home or self-care (01) ==
LOC: OPBI 13:58
PROVIDERS: Referring Provider Nurse Practitioner Family; Visit Provider Nurse Practitioner Family
DX: Z12.31 Encounter for screening mammogram for malignant neoplasm of breast (principal)
CPT/HCPCS: 77063; 77067

== ENCOUNTER 2024-08-03 12:58 | Emergency (ER) | payer OTHER, MEDICAID, SELFPAY ==
[2024-08-03 12:59] VITALS: BP 161/133; PULSE 84; RESP 16; TEMP 36.2; O2SAT 100; BMI 28.6
--- NOTE | 2024-08-03 13:29 | EDS_ITS ---
HPI <MARIBELL Zamarripa - Last Filed: 08/03/24 13:46> History of Present Illness Chief Complaint: Rash Narrative Narrative: 43-year-old female has a chronic history of severe psoriasis. About a week and a half ago she developed a flare with psoriasis plaque in her right flexor elbow and redness and edema around both eyes. She states she often gets psoriasis flares around her eyes. She called her motorcycle police officer, Dr. Ford Juarez, who sent in doxycycline. She will finish the antibiotics tomorrow but it has not improved. She is here requesting a steroid shot as that has worked in the past. She denies fever or chills, open wounds or drainage, or visual changes. PFSH <MARIBELL Zamarripa - Last Filed: 08/03/24 13:46> PFSH Medical History Acid reflux Diabetes mellitus H/O renal calculi Hypertension Home Medications ?Medication ?Instructions ?Recorded ?Last Taken ?Type guselkumab 100 mg/mL subcutaneous 100 mg subcut Q2W 08/03/22 Unknown History auto-injector (Tremfya) sucralfate 1 gram tablet (Carafate) 1 g PO QACHS #60 tabs 08/03/22 Unknown Rx omeprazole 40 mg capsule,delayed See Rx Instructions .Route 03/01/23 Unknown Rx release .COMPLEX #90 caps Allergy/AdvReac Type Severity Reaction Status Date / Time sulfamethoxazole (From Allergy Hives Verified 08/03/24 13:02 Bactrim) trimethoprim (From Bactrim) Allergy Hives Verified 08/03/24 13:02 Social History Smoking Status: Current every day smoker tobacco type: cigarettes alcohol intake: never substance use type: does not use ROS <MARIBELL Zamarripa - Last Filed: 08/03/24 13:46> ROS ED ROS Narrative Constitutional: Negative for fever, chills, malaise. Eyes: Negative for visual change. Skin: Positive for rash. EXAM <MARIBELL Zamarripa - Last Filed: 08/03/24 13:46> Physical Exam Narrative Exam Narrative: CONST: Patient sitting in no acute distress. EYES: Normal inspection. ENT: Bilateral periorbital edema with dry red skin of upper and lower eyelids consistent with psoriasis. There is no warmth, fluctuance or crepitus. Globes appear normal, PERRL, EOMI, no drainage. NECK: Normal inspection. RESP: No respiratory distress, CTAB. SKIN: Dry red psoriasis plaque right flexor elbow. EXTREMITIES: Normal appearance, no pedal edema. NEURO: Alert and answering questions appropriately. PSYCH: Normal affect. Const Vital Signs: 08/03/24 12:59 Temperature 97.2 F L Temperature Source Temporal Pulse Rate 84 Respiratory Rate 16 Blood Pressure 161/133 H Blood Pressure Mean 142 Pulse Ox 100 Oxygen Delivery Method Room Air <Dr. Sean Waite DO - Last Filed: 08/03/24 14:06> Physical Exam Const Vital Signs: 08/03/24 12:59 Temperature 97.2 F L Temperature Source Temporal Pulse Rate 84 Respiratory Rate 16 Blood Pressure 161/133 H Blood Pressure Mean 142 Pulse Ox 100 Oxygen Delivery Method Room Air [facility] <MARIBELL Zamarripa - Last Filed: 08/03/24 13:46> [facility] Narrative Medical decision making narrative: Patient has a flare of psoriasis in the bilateral periorbital region and right elbow. She has had similar symptoms in the past. She is under the care of a motorcycle police officer for this. She has no signs of superimposed cellulitis or abscess. She is on doxycycline from her motorcycle police officer. I ordered an IM Kenalog shot as this has worked well for her in the past and she prefers this over oral steroids. I recommended close follow-up with her specialist and she was discharged in stable condition. <Dr. Sean Waite DO - Last Filed: 08/03/24 14:06> [facility] Narrative Medical decision making narrative: Patient has a flare of psoriasis in the bilateral periorbital region and right elbow. She has had similar symptoms in the past. She is under the care of a motorcycle police officer for this. She has no signs of superimposed cellulitis or abscess. She is on doxycycline from her motorcycle police officer. I ordered an IM Kenalog shot as this has worked well for her in the past and she prefers this over oral steroids. I recommended close follow-up with her specialist and she was discharged in stable condition. ED attending note: I evaluated the patient in conjunction with the [facility]. I agree with his/her statements and above findings. I have personally performed a face to face assessment of the patient and have reviewed the [facility] Note. I performed a substantive portion of the visit including all aspects of the following. I personally saw the patient performed chart review, physical exam, reviewed labs, imaging (if obtained), and formulated a treatment and management plan. This note was generated with [employer] dictation software. It may contain incorrect words, spelling, and punctuation that were not noted in review of the chart prior to signing. Discharge Plan Triage Chief Complaint: Rash ED Midlevel Provider: Liz Hodge ED Provider: Sean Waite Dx/Rx/DC Orders Clinical Impression: Psoriasis Instructions: ED Psoriasis Prescriptions: No Action Tremfya 100 mg/mL auto-injector 100 mg subcut Q2W sucralfate [Carafate] 1 gram tablet 1 g PO QACHS Qty: 60 0RF omeprazole 40 mg capsule,delayed release(DR/EC) See Rx Instructions .ROUTE .COMPLEX Qty: 90 0RF Dose Instruction: TAKE 1 CAPSULE BY MOUTH EVERY DAY Rx Instructions: TAKE 1 CAPSULE BY MOUTH EVERY DAY Primary Care Provider: Care Physician,No Primary Referrals: Care Physician,No Primary [Primary Care Provider] - Activity Restrictions/Additional Instructions: Follow-up with your motorcycle police officer. Print Language: Salvadorean Disposition Disposition: Home, Self Care
[2024-08-03] MEDS: Triamcinolone Acetonide 40 MG/ML Vial 60 MG IM (13:46)
== END 2024-08-03 14:18 | disposition home or self-care (01) ==
PROVIDERS: Emergency Provider Emergency Medicine; Visit Provider Emergency Medicine
DX: L40.9 Psoriasis, unspecified (principal); E11.9 Type 2 diabetes mellitus without complications; I10 Essential (primary) hypertension; K21.9 Gastro-esophageal reflux disease without esophagitis; Z79.899 Other long term (current) drug therapy; F17.210 Nicotine dependence, cigarettes, uncomplicated
CPT/HCPCS: 96372; 99282

== ENCOUNTER → 2024-11-26 | Outpatient (CLI) | payer OTHER, MEDICAID, SELFPAY | END | disposition home or self-care (01) | LOC: LABSPEC 16:14 | PROVIDERS: Referring Provider Physician Assistant; Visit Provider Physician Assistant | DX: L02.31 Cutaneous abscess of buttock (principal) | CPT/HCPCS: 87070; 87075; 87077; 87186; 87205 ==

== ENCOUNTER → 2025-06-24 | Outpatient (CLI) | payer OTHER, MEDICAID, SELFPAY ==
--- OUTSIDE RECORDS SUMMARY | 2025-06-24 16:52 | XMS RPT_ITS | CCD ---
Author Organization [facility] Care Team Providers Care Production Planner Name Role Phone Hannanagi Liz Priti Primary Care Provider [phone] Reese Mcfadden Primary Care Provider Unavailab Dr. Paul Ross Attending Provider Care Physician, No Primary Referring Provider Un available Reese Self Primary Care Provider Unava ilable Dr. Paul Erazo Attending Provider Care Physician, No Primary Referring Provider Un available Care Physician, No Primary Primary Care Provider Unavailable Dr. Sean Waite DO Attending Provider Dr. Sean Waite DO Emergency Provider Praveena Cook PA-C Attending Provider Medical [place] Primary Care Pro vider [facility] Referring Provid er Praveena Cook PA-C Referring Provider Care Physician, No Primary Primary Care Unava ilable Jennifer Addison Referring Unavailabl fernando Boss Jennifer Fernandez Attending Unavailabl e Praveena Clemons Referring Unavailable Praveena Clemons Attending Unavailable [facility] [place] [facility] Primary Care Unavailable Sean Waite Attending Unavailable Care Physician, No Primary Primary Care Unava ilable Praveena Clemons Attending Unavailable [facility] [place] [facility] Referring [facility] [place] [facility] Unavailable Praveena Clemons Attending Unavailable [facility] [place] [facility] Referring Unavailable [facility] [place] [facility] Primary Care Unavailable Allergies Allergy Classification Reported Allergen(s) Allergy Type Date of Onset Reaction(s) Facility (7 sources) Sulfamethoxazole Drug Allergy 2 [facility] (7 sources) Trimethoprim Drug Allergy 2 [facility] (1 source) Sulfamethoxazole Drug Allergy 5 [facility] (1 source) Trimethoprim Drug Allergy 5 [facility] Medications Current Medications Medication Drug Class(es) Dates Sig (Normalized) Sig (Original) 200 actuat albuterol 0.09 mg/actuat metered dose inhaler (2 sources) beta2-Adrenergic Agonist take 2 puff(s) by inhalation every six hours as needed for wheezing albuterol sulfate HFA 108 (90 BASE) MCG/ACT inhaler Inhale 2 puffs into the lungs every 6 hours as needed for Wheezing 0 Active amoxicillin 875 mg / clavulanate 125 mg oral tablet (1 source) Penicillin-class Antibacterial Start: 11-26-2024 Amoxicillin-Pot Clavulanate 875-125 mg tablet Active 1 {tbl} PO TWICE A DAY 12 05November 26, 2024 12:00am December 05, 2024 12:00am 60 actuat budesonide 0.16 mg/actuat / formoterol fumarate 0.0045 mg/actuat metered dose inhaler (2 sources) Corticosteroid, beta2-Adrenergic Agonist Start: 09-20-2018 take 2 puff(s) by mouth twice daily SYMBICORT 160-4.5 MCG/ACT AERO INHALE TWO PUFFS BY MOUTH TWO TIMES A DAY 3 09/20/2018 Active Cetirizine (2 sources) Histamine-1 Receptor Antagonist Cetirizine HCl (ZYRTEC PO) Take by mouth 3 times daily as needed 0 Active cyclobenzaprine hydrochloride 10 mg oral tablet (2 sources) Muscle Relaxant take 1 tablet by mouth three times daily as needed for muscle spasms cyclobenzaprine (FLEXERIL) 10 MG tablet Take 10 mg by mouth 3 times daily as needed for Muscle spasms 0 Active doxycycline hyclate 100 mg oral tablet (2 sources) Tetracycline-class Drug Start: 10-08-2018 take 1 tablet by mouth twice daily doxycycline hyclate (VIBRA-TABS) 100 MG tablet Take 1 tablet by mouth 2 times daily 28 tablet 0 10/08/2018 Active Completed/Discontinued Medications Medication Drug Class(es) Dates Sig (Normalized) Sig (Original) acetaminophen 325 mg / HYDROcodone bitartrate 5 mg oral tablet (7 sources) Opioid Agonist Start: 03-03-2019 End: 03-06-2019 Hydrocodone-Acetami nophen 1 TABLET tablet Discontinued 1 {tbl} PO EVERY 6 HOURS NEEDED as needed for Pain 10 3 March 03, 2019 March 05, 2019 12:00am March 06, 2019 12:08am Start: 03-03-2019 End: 03-06-2019 take 1 tablet by mouth every six hours as needed Hydrocodone-Acetaminophen Discontinued 1 TABLET PO EVERY 6 HOURS NEEDED 10 3 March 03, 2019 March 06, 2019 12:08am acetaminophen 325 mg / oxyCODONE hydrochloride 5 mg oral tablet (7 sources) Opioid Agonist Start: 10-30-2021 End: 08-03-2022 Oxycodone-Acetaminophen (Percocet) 5-325 mg tablet Discontinued 1 {tbl} PO EVERY 6 HOURS as needed for pain 12 3 October 30, 2021 August 03, 2022 2:06pm ciprofloxacin 500 mg oral tablet (7 sources) Quinolone Antimicrobial Start: 03-03-2019 End: 08-03-2022 take 1 tablet by mouth twice daily Ciprofloxacin Hcl 500 MG tablet Discontinued 500 mg PO TWICE A DAY 14 March 03, 2019 12:00am August 03, 2022 2:06pm clindamycin 150 mg oral capsule (7 sources) Lincosamide Antibacterial Start: 02-25-2019 End: 08-03-2022 take 2 capsules by mouth four times daily Clindamycin Hcl 150 MG capsule Discontinued 300 mg PO 4 TIMES DAILY 80 February 25, 2019 12:00am August 03, 2022 2:06pm Start: 02-25-2019 End: 08-03-2022 take 300 mg by mouth four times daily Clindamycin Hcl Discontinued 300 MG PO 4 TIMES DAILY 80 February 25, 2019 12:00am August 03, 2022 2:06pm clotrimazole 10 mg/ml topical cream (7 sources) Azole Antifungal Start: 03-03-2019 End: 08-03-2022 Clotrimazole 30 GM cream Discontinued 30 g TP TWICE A DAY 1 March 03, 2019 12:00am August 03, 2022 2:06pm fluconazole 150 mg oral tablet (7 sources) Azole Antifungal Start: 03-03-2019 End: 08-03-2022 take 1 tablet by mouth once Fluconazole 150 MG tablet Discontinued 150 mg PO ONE TIME March 03, 2019 12:00am August 03, 2022 2:06pm Take dose on 03/06/19. 1 ml guselkumab 100 mg/ml auto-injector (5 sources) Interleukin-23 Antagonist Start: 08-03-2022 End: 11-26-2024 Guselkumab (Tremfya) 100 mg/mL auto-injector Discontinued 100 mg SC every 2 weeks August 03, 2022 1:00am November 26, 2024 2:39pm nitrofurantoin, macrocrystals 25 mg / nitrofurantoin, monohydrate 75 mg oral capsule (7 sources) Nitrofuran Antibacterial Start: 02-27-2019 End: 08-03-2022 take 1 capsule by mouth every twelve hours Nitrofurantoin Monohyd/M-Cryst 100 MG capsule Discontinued 100 mg PO EVERY 12 HOURS February 27, 2019 12:00am August 03, 2022 2:06pm omeprazole 40 mg delayed release oral capsule (11 sources) Proton Pump Inhibitor Start: 08-03-2022 End: 11-26-2024 take 1 capsule by mouth once daily Omeprazole 40 mg capsule,delayed release(DR/EC) Discontinued 0 .ROUTE .COMPLEX March 01, 2023 7:40am November 26, 2024 2:39pm TAKE 1 CAPSULE BY MOUTH EVERY DAY ondansetron 4 mg disintegrating oral tablet (7 sources) Serotonin-3 Receptor Antagonist Start: 10-30-2021 End: 08-03-2022 take 1 tablet by mouth every eight hours as needed for nausea and vomiting Ondansetron 4 mg tablet,disintegrati ng Discontinued 4 mg PO Q8H as needed for nausea and vomiting October 30, 2021 12:00am August 03, 2022 2:06pm predniSONE 20 mg oral tablet (7 sources) Start: 02-25-2019 End: 08-03-2022 take 2 tablets by mouth once daily at mealtime Prednisone 20 MG tablet Discontinued 40 mg PO DAILY February 25, 2019 12:00am August 03, 2022 2:06pm With food Start: 02-25-2019 End: 08-03-2022 take 40 mg by mouth once daily at mealtime Prednisone Discontinued 40 MG PO DAILY February 25, 2019 12:00am August 03, 2022 2:06pm With food sucralfate 1000 mg oral tablet (5 sources) Aluminum Complex Start: 08-03-2022 End: 11-26-2024 take 1 tablet by mouth at bedtime Sucralfate (Carafate) 1 gram tablet Discontinued 1 g PO before meals and at bedtime 60 August 03, 2022 1:00am November 26, 2024 2:39pm tamsulosin hydrochloride 0.4 mg oral capsule (9 sources) alpha-Adrenergi c Dom Start: 10-30-2021 End: 08-03-2022 take 1 capsule by mouth once daily Tamsulosin (Flomax) 0.4 mg capsule Discontinued 0.4 mg PO DAILY October 30, 2021 12:00am August 03, 2022 2:05pm Start: 03-05-2018 take 1 capsule by mo uth once daily tamsulosin (FLOMAX) 0.4 MG capsule Take 1 capsule by mouth daily for 7 days 7 capsule 0 03/05/2018 Active Problems Active Problems Problem Classification Problem Date Documented Date Episodic/Chronic Abdominal pain (9 sources) Epigastric pain; Translations: [Epigastric pain] 08-03-2022 Episodic Allergic reactions (20 sources) Eruption due to drug; Translations: [Generalized skin eruption due to drugs and medicaments taken internally] 03-01-2019 Episodic Calculus of urinary tract (9 sources) Ureteric stone; Translations: [Kidney stone] Onset: 03-05-2018 03-05-2018 Episodic Diabetes mellitus without complication (5 sources) Diabetes mellitus; Translations: [Type 2 diabetes mellitus without complications] 08-03-2022 Chronic Diabetes mellitus without complication (7 sources) Hyperglycemia; Translations: [Hyperglycemia, unspecified] 11-07-2021 Episodic Esophageal disorders (9 sources) Gastroesophageal reflux disease; Translations: [Gastro-esophageal reflux disease without esophagitis] 08-03-2022 Chronic Essential hypertension (7 sources) Hypertensive disorder; Translations: [Essential (primary) hypertension] 11-07-2021 Chronic Mycoses (7 sources) Candidal vulvovaginitis; Translations: [Candidiasis of vulva and vagina] 03-04-2019 Episodic Other inflammatory condition of skin (1 source) Psoriasis; Translations: [Psoriasis, unspecified] 08-11-2024 Chronic Other skin disorders (7 sources) Folliculitis; Translations: [Follicular disorder, unspecified] 02-27-2019 Episodic Skin and subcutaneous tissue infections (10 sources) Abscess of skin and/or subcutaneous tissue; Translations: [Cutaneous abscess, unspecified] Onset: 12-01-2024 02-27-2019 Episodic Urinary tract infections (14 sources) Acute cystitis; Translations: [Acute cystitis without hematuria] 03-01-2019 Episodic Past or Other Problems Problem Classification Problem Date Documented Date Episodic/Chronic Other screening for suspected conditions (not mental disorders or infectious disease) (2 sources) Ultrasonography of breast abnormal; Translations: [Other abnormal and inconclusive findings on diagnostic imaging of breast] Onset: 12-22-2023 11-01-2022 Episodic Other skin disorders (2 sources) Hidradenitis; Translations: [Hidradenitis] Onset: 10-08-2018 10-08-2018 Episodic Other skin disorders (1 source) Rash and other nonspecific skin eruption; Translations: [Rash and other nonspecific skin eruption] Onset: 08-24-2024 Episodic Results Test Name Value Interpretation Reference Range Facility Surgery Visit Reporton 12-02 Surgery Visit Report [facility] [address] [place] [address] OFFICE VISIT Date of Service: 12/02/24 MR#: [id number] Acct: [id number] Name: KYRA GAMBLE Rep #: [id number] : 1980 Provider: KARL michel Age/Sex: 44/F Location: [facility] Status: Signed Intake Vital Signs 08/03/24 12:59 Height 5 ft 4 in Weight: 167 lb BMI 28.6 BP 161/133 H Respiration 16 Pulse 84 Temp 97.2 F L Temp Source Temporal Pulse Oximetry (%) 100 Intake Visit Reasons: WOUND CHECK Chief Complaint: woudn check Is patient in pain?: No Allergies sulfamethoxazole (From Bactrim) Allergy (Verified 12/02/24 14:10) Hives trimethoprim (From Bactrim) Allergy (Verified 12/02/24 14:10) Hives Medications ???Medication ???Instructions ???Recorded ???Confirmed ???Type amoxicillin 875 mg-potassium 1 tab PO BID 10 days #20 tabs 05/0 01/1512/02/24 Rx clavulanate 125 mg tablet Subjective Details: Patient is a 44 y/o F I am following s/p incision and drainage of right medial buttock abscess by myself on 11/26/24. Patient tolerated the procedure well. Patient notes feeling much improved since last week. She denies any further drainage. She notes the night of the procedure and the following day the open wound oozed out purulent material. She notes that she is able to comfortably sit and move. She is taking Augmentin x 10 days since the procedure. Culture returned as Staph pseudintermediu. Patient denies any further compliants today. Objective Details: Right gluteal region, medial aspect- incision slightly opened. No active purulent material noted. No bandage needed. No erythema and surrounding tissue is much softer. Coding Level of Care Code Global Post Op Diagnoses Abscess of buttock, right L02.31 [facility] Medical History Acid reflux Diabetes mellitus H/O renal calculi Hypertension Family History (Updated 11/26/24 @ 14:38 by Sylvie Stevens) Mother Diabetes Hypertension Father Hypertension Social History (Updated 11/26/24 @ 14:38 by Sylvie Stevens) Smoking Status: Current every day smoker tobacco type: cigarettes quit status: not considering quitting alcohol intake: never substance use type: does not use Assessment and Plan (No Qualifiers) Assessment and Plan (1) Abscess of buttock, right: Status: Acute Plan: Continue antibiotics Follow-up as needed 12/02/24 1415 Date Praveena Siegel Signature: Date (if applicable) CC: Normal [facility] Culture, Anaerobic Any Sourc neil 12-01-2024 CUAN No anaerobic bacteri a isolated. Normal [facility] Comment on above: Performed By: #### M 100.4001, M100.1999, M100.3000 #### [facility] [address] [place], [address] Wound Cultureon 11-28-2024 WC Staphylococcus pseudintermediu Amount Growth 2+ Staphylococcus pseudintermediu: REACTION Doxycycline Islt JANEY <=0.5 Clindamycin Islt JANEY <=0.12 S Clindamycin.induced Susc Islt NEG Erythromycin Islt JANEY <=0.25 S Gentamicin Islt JANEY <=0.5 S Linezolid Islt JANEY 1 S Oxacillin Susc Islt 1 R Tetracycline Islt JANEY <=1 S TMP SMX Islt JANEY <=10 S Vancomycin Islt JANEY <=0.5 S Normal [facility] Comment on above: Performed By: #### M 100.4001, M100.1999, M100.3000 #### [facility] [address] [place], [address] Gram Stainon 11-27-2024 GS Gram Stain 4+ White Blood Cells 2+ Gram positive rods No Epithelial cells Normal [facility] Comment on above: Performed By: #### M 100.4001, M100.1999, M100.3000 #### [facility] [address] [place], [address] Gram stainOrdered By: Praveena Cook on 11-26-2024 Microscopic observation Gram stain Nom (Unsp spec) [facility] Routine wound cultureOrdered By: Praveena Cook on 11-26-2024 Microbial culture, routine Staphylococcus pseudintermediu Abnormal [facility] Surgery Visit Reporton 11-26 Surgery Visit Report [facility] [address] [place] [address] OFFICE VISIT Date of Service: 11/26/24 MR#: [id number] Acct: [id number] Name: KYRA GAMBLE Rep #: [id number] : 1980 Provider: KARL michel Age/Sex: 44/F Location: [facility] Status: Signed Intake Vital Signs 08/03/24 12:59 Height 5 ft 4 in Intake Visit Reasons: BOIL ON BUTTOCKS Chief Complaint: abcess on buttock Is patient in pain?: Yes Allergies sulfamethoxazole (From Bactrim) Allergy (Verified 11/26/24 14:39) Hives trimethoprim (From Bactrim) Allergy (Verified 11/26/24 14:39) Hives Medications ???Medication ???Instructions ???Recorded ???Confirmed ???Type amoxicillin 875 mg-potassium 1 tab PO BID 10 days #20 tabs /0 01/1511/26/24 Rx clavulanate 125 mg tablet PFSH Medical History Acid reflux Diabetes mellitus H/O renal calculi Hypertension Family History (Updated 11/26/24 @ 14:38 by Sylvie Stevens) Mother Diabetes Hypertension Father Hypertension Social History (Updated 11/26/24 @ 14:38 by Sylvie Stevens) Smoking Status: Current every day smoker tobacco type: cigarettes quit status: not considering quitting alcohol intake: never substance use type: does not use HPI HPI HPI: Patient is a 44 y/o F who presents with a painful lump on her right buttock. She notes a history of hidradenitis. She follows with Dr. Juarez, dermatology. Patient notes the painful lump started last week. She notes typically her abscesses will spontaneously open and drain. She notes this one did not. She denies any fever. She notes it is very painful to sit. She is not currently on antibiotics. ROS General General: Yes weight change; No appetite, fatigue, colon cancer, breast cancer or weakness HEENT HEENT: No difficulty swallowing, eye injury, eye surgery, swollen glands or hoarseness Endo Endocrine: Yes diabetes mellitus; No thyroid disease, thyroid cancer, Hair loss, heat intolerance or cold intolerance Skin Skin: Yes rash; No changing moles Additional Details: abcess Musc Musculoskeletal: Yes back problems and arthritis; No rheumatoid arthritis, gout or joint pain Cardio Cardiovascular: Yes high blood pressure; No murmur, pacemaker, heart disease, atrial fibrillation, heart attack, heart stent, palpitations, shortness of breath with exertion or chest pain Psych Psychiatric: No depression, anxiety or hearing voices Resp Respiratory: No shortness of breath, No sleep apnea, No cough, Yes COPD, No asthma, No emphysema and No wheezing Gastro Gastrointestinal: Yes abdominal pain, No nausea or vomiting, No diarrhea, No constipation, No blood in stool, Yes acid reflux, No hemorrhoids, Yes ulcers, No gallbladder problem and No black,tarry stools Carl Hematologic: No blood thinners, No blood disorders, No bleeding, No anemia and No blood clots Neuro Neurologic: No system reviewed and no additional complaints, except as documented, No as per HPI, No abnormal gait, No abnormal hearing, No abnormal movements, No abnormal speech, No behavioral changes, No burning sensations, No confusion, No convulsions, No disequilibrium, No dizziness, No localized weakness, No frequent falls, No headache(s), No lack of coordination, No loss of vision, No memory loss, No numbness, No other visual disturbances, No radicular pain, No restless legs, No sensory deficit, No syncope, No tingling, No tremor(s), No weakness and No other Exam GI Other: Right gluteus- medial portion of the gluteus was noted to have a firm erythematous, tender lump consistent with an abscess Office Procedures I D Provider Documentation Provider Documentation: Procedure note Procedure: Incision and Drainage of infected right gluteal abscess Permit: Procedure, benefits, risks (include those of bleeding, infection, injury, anesthesia, and allergic reaction), and alternatives explained to the patient who voiced understanding of the information. Their questions were sought and answered. Patient agreed to proceed with the incision and drainage of infected right gluteal abscess. Permit signed and in chart. Indication: Infected right gluteal abscess Physician: Praveena Cook PA-C Nurse: Sylvie Stevens LPN Description: Patient positioned prone on the procedure table. Area prepped with Betadine and draped in a sterile fashion. Local anesthetic administered with 7 cc of 0.5% Marcaine and 1% lidocaine. An 18 gauge needle was used to aspirate out 7 cc of purulent bloody fluid. A linear incision was made and a large amount of purulent, malodorous fluid was expressed. Cavity was probed to break up any pockets. Culture was obtained. Cavity was packed with 1/4 iodoform packing. Surrounding area was (more content not included)... Normal [facility] Emergency Department Summary on 08-03-2024 Emergency Department Summary [facility] Medical Records Department [address] [place] [address] Emergency Department Summary 08/03/24 MR#: [id number] Acct: [id number] Name: KYRA GAMBLE Rep #: [id number] : 1980 43 From: Liz REYNA PCP: Care Physician,No Primary Status:DEP ER Location: ED HPI History of Present Illness Chief Complaint: Rash Narrative Narrative: 43-year-old female has a chronic history of severe psoriasis. About a week and a half ago she developed a flare with psoriasis plaque in her right flexor elbow and redness and edema around both eyes. She states she often gets psoriasis flares around her eyes. She called her breakfast server, Dr. Ford Juarez, who sent in doxycycline. She will finish the antibiotics tomorrow but it has not improved. She is here requesting a steroid shot as that has worked in the past. She denies fever or chills, open wounds or drainage, or visual changes. [facility] Medical History Acid reflux Diabetes mellitus H/O renal calculi Hypertension Home Medications ???Medication ???Instructions ???Recorded ???Last Taken ???Type guselkumab 100 mg/mL subcutaneous 100 mg subcut Q2W 08/03/22 Unknown History auto-injector (Tremfya) sucralfate 1 gram tablet (Carafate) 1 g PO QACHS #60 tabs 08/03/22 Unknown Rx omeprazole 40 mg capsule,delayed See Rx Instructions .Route 03/01/23 Unknown Rx release .COMPLEX #90 caps Allergy/AdvReac Type Severity Reaction Status Date / Time sulfamethoxazole (From Allergy Hives Verified 08/03/24 13:02 Bactrim) trimethoprim (From Bactrim) Allergy Hives Verified 08/03/24 13:02 Social History Smoking Status: Current every day smoker tobacco type: cigarettes alcohol intake: never substance use type: does not use ROS ROS ED ROS Narrative Constitutional: Negative for fever, chills, malaise. Eyes: Negative for visual change. Skin: Positive for rash. EXAM Physical Exam Narrative Exam Narrative: CONST: Patient sitting in no acute distress. EYES: Normal inspection. ENT: Bilateral periorbital edema with dry red skin of upper and lower eyelids consistent with psoriasis. There is no warmth, fluctuance or crepitus. Globes appear normal, PERRL, EOMI, no annette inage. NECK: Normal inspection. RESP: No respiratory distress, CTAB. SKIN: Dry red psoriasis plaque right flexor elbow. EXTREMITIES: Normal appearance, no pedal edema. NEURO: Alert and answering questions appropriately. PSYCH: Normal affect. Const Vital Signs: 08/03/24 12:59 Temperature 97.2 F L Temperature Source Temporal Pulse Rate 84 Respiratory Rate 16 Blood Pressure 161/133 H Blood Pressure Mean 142 Pulse Ox 100 Oxygen Delivery Method Room Air Physical Exam Const Vital Signs: 08/03/24 12:59 Temperature 97.2 F L Temperature Source Temporal Pulse Rate 84 Respiratory Rate 16 Blood Pressure 161/133 H Blood Pressure Mean 142 Pulse Ox 100 Oxygen Delivery Method Room Air [facility] Narrative Medical decision making narrative: Patient has a flare of psoriasis in the bilateral periorbital region and right elbow. She has had similar symptoms in the past. She is under the care of a breakfast server for this. She has no signs of superimposed cellulitis or abscess. She is on doxycycline from her breakfast server. I ordered an IM Kenalog shot as this has worked well for her in the past and she prefers this over oral steroids. I recommended close follow-up with her specialist and she was discharged in stable condition. [facility] Narrative Medical decision making narrative: Patient has a flare of psoriasis in the bilateral periorbital region and right elbow. She has had similar symptoms in the past. She is under the care of a breakfast server for this. She has no signs of superimposed cellulitis or abscess. She is on doxycycline from her breakfast server. I ordered an IM Kenalog shot as this has worked well for her in the past and she prefers this over oral steroids. I recommended close follow-up with her specialist and she was discharged in stable condition. ED attending note: I evaluated the patient in conjunction with the TROY. I agree with his/her statements and above findings. I have personally performed a face to face assessment of the patient and have reviewed the [facility] Note. I performed a substantive portion of the visit including all aspects of the following. I personally saw the patient performed chart review, physical exam, reviewed labs, imaging (if obtained), and formulated a treatment and management plan. This note was generated with [employer] dictation software. It may contain incorrect words, spelling, and punctuation that were n (more content not included)... Normal [facility] SCRN MAMM (CAD)W/JUAN PABLO BILATo n 12-13-2023 SCRN MAMM (CAD)W/JUAN PABLO BILAT [facility] [address] [place], [place] [address] SCRN MAMM (CAD)W/JUAN PABLO BILAT MR#: [id number] Acct: [id number] Name: KYRA GAMBLE Rep #: [id number] : 1980 F 43 From: Reese Vila MD PCP: Care Physician,No Primary Status: [facility] Study: SCRN MAMM (CAD)W/JUAN PABLO BILAT Date of Exam: 11/22 09/16 Exam# [id number] Ordering Dr: Jennifer Boss [facility] [employer] ANALYST-C [id number] MAMMOGRAPHY - BILATERAL SCREENING 3-D TOMOSYNTHESIS REASON FOR EXAM: Female, 43 years old. SCREENING PERTINENT HISTORY: No significant family history. TECHNIQUE: 2-D mammograms and 3-D Tomosynthesis of the breast (s) were performed. CAD was performed. COMPARISON: 10/19/2022 FINDINGS: The breast composition is heterogeneously dense that can obscure small breast masses. Scattered benign calcifications are seen. No dense spiculated masses or suspicious microcalcifications are identified. No architectural distortion is identified. There is no skin thickening or retraction. There has been no significant change since the prior study. BI/SCRN MAMM (CAD)W/JUAN PABLO BILAT IMPRESSION: No mammographic signs of malignancy. Routine yearly mammograms recommended. ASSESSMENT CATEGORY: BIRADS Category 1: Negative. A letter regarding these results will be sent to the patient by the facility within 30 days. FOLLOW UP RECOMMENDATION: Yearly follow up mammogram recommended. (A) Approximately 10% of breast cancers are not detected by mammography. A normal mammogram should not delay biopsy of a clinically suspicious abnormality. Electronically Signed: Reese Vila MD at 15:22 EDT , CC: [facility] Boss; No Primary Care Physician Phlebotomy Services Technician: Signed Normal [facility] Basophil percentageOrdered B y: CAMACHO ANN on 08-01-2022 Bilirubin [Mass/Vol] 1.00 mg/dL 0.20-1.00 [facility] Comment on above: For patients on eltr ombopag therapy, use of [place] TBIL is not recommended. Chloride [Moles/Vol] 102 mmol/L 98-107 [facility] Glucose [Mass/Vol] 202 mg/dL 74-106 [facility] Comment on above: Glucose result great er than or equal to 200 mg/dLsuggests DIABETES MELLITUS per A.D.A. criteria. Potassium [Moles/Vol] 4.4 mmol/L 3.5-5.1 [facility] Protein [Mass/Vol] 7.6 g/dL 6.4-8.2 [facility] Sodium [Moles/Vol] 138 mmol/L 136-145 [facility] Laboratory - Chemistry and C hemistry - challengeOrdered By: CAMACHO ANN on 08-01-2022 ALP [Catalytic activity/Vol] 101 U/L 45-117 [facility] ALT [Catalytic activity/Vol] 26 U/L 13-56 [facility] CO2 [Moles/Vol] 24.0 mmol/L 21.0-32.0 [facility] Globulin (S) [Mass/Vol] 3.6 g/dL 2.2-4.2 [facility] Urea nitrogen/Creatinine [Mass ratio] 10.5 mg/mg 10-20 [facility] No Panel InformationOrdered By: CAMACHO ANN on 08-01-2022 Estimated GFR (MDRD) Amer 82 mL/min >60 [facility] Comment on above: GFR Calc Estimated GFR (MDRD) Non-Af Amer 68 mL/min >60 [facility] Comment on above: Non- GFR Calc Serum or plasma albumin ely urement (mass/volume)Ordered By: CAMACHO ANN on 08-01-2022 Albumin [Mass/Vol] 4.0 g/dL 3.2-5.0 [facility] Serum or plasma albumin/glob ulin mass ratioOrdered By: CAMACHO ANN on 08-01-2022 Albumin/Globulin [Mass ratio] 1.1 {ratio} 0.9-2.4 [facility] Serum or plasma calcium ely urement (mass/volume)Ordered By: CAMACHO ANN on 08-01-2022 Calcium [Mass/Vol] 9.5 mg/dL 8.5-10.1 [facility] Serum or plasma creatinine m easurement (mass/volume)Ordered By: CAMACHO ANN on 08-01-2022 Creatinine [Mass/Vol] 0.95 mg/dL 0.55-1.02 [facility] Comment on above: The validity of the calculated GFR & GFRAA in patients over 70 years has not been determined. Clinical correlation is essential. Serum or plasma urea nitroge n measurement (mass/volume)Ordered By: CAMACHO ANN on 08-01-2022 Urea nitrogen [Mass/Vol] 10 mg/dL 7-18 [facility] Thin prep Papanicolaou smear with manual screeningOrdered By: CAMACHO ANN on 08-01-2022 Thin prep Papanicolaou smear with manual screening 9 U/L 15-37 [facility] Thin prep Papanicolaou smear with manual screening 12 5-15 [facility] Whole blood hemoglobin A1c/t otal hemoglobin ratio (mass fraction)Ordered By: CAMACHO ANN on 08-01-2022 HbA1c (Bld) [Mass fraction] 8.6 % 3.8-5.6 [facility] Comment on above: Normal < 5.7 % Predi abetic 5.7 - 6.4 % Diabetic >or= 6.5 % Please note range changes. Absolute lymphocyte countOrd ered By: Dr. Juarez on 06-01-2022 Lymphocytes Auto (Unsp spec) [#/Vol] 2.02 10*3/uL 0.83-4.51 [facility] Basophil percentageOrdered B y: Dr. Juarez on 06-01-2022 Basophils/100 WBC (Bld) 0.4 % 0-1 [facility] Bilirubin [Mass/Vol] 0.60 mg/dL 0.20-1.00 [facility] Comment on above: For patients on eltr ombopag therapy, use of [place] TBIL is not recommended. Eosinophils/100 WBC (Bld) 0.5 % 0-5 [facility] Neutrophils (Bld) [#/Vol] 6.8 10*3/uL 2.0-7.7 [facility] Neutrophils/100 WBC (Bld) 70.1 % 47-70 [facility] Protein [Mass/Vol] 7.9 g/dL 6.4-8.2 [facility] WBC (Bld) [#/Vol] 9.6 10*3/uL 4.4-11.0 [facility] Blood erythrocytes count (nu mber/volume)Ordered By: Dr. Juarez on 06-01-2022 RBC (Bld) [#/Vol] 5.58 10*6/uL 4.2-5.[address] [facility] Blood hemoglobin measurement (mass/volume)Ordered By: Dr. Juarez on 06-01-2022 Hemoglobin (Bld) [Mass/Vol] 17.1 g/dL 12.0-15.0 [facility] Blood lymphocytes/100 leukoc ytesOrdered By: Dr. Juarez on 06-01-2022 Lymphocytes/100 WBC (Bld) 21.0 % 19-41 [facility] Blood monocytes/100 leukocyt esOrdered By: Dr. Juarez on 06-01-2022 Monocytes/100 WBC (Bld) 7.2 % 0-10 [facility] Blood platelet mean volumeOr dered By: Dr. Juarez on 06-01-2022 Platelet mean volume (Bld) [Entitic vol] 10.5 fL 6.2-12.0 [facility] Determination of erythrocyte mean corpuscular volume (MCV)Ordered By: Dr. Juarez on 06-01-2022 MCV (RBC) [Entitic vol] 91.9 fL 81-99 [facility] Direct bilirubinOrdered By: Dr. Juarez on 06-01-2022 Bilirubin.direct [Mass/Vol] 0.14 mg/dL 0.00-0.30 [facility] HIV 1 and HIV-2 antibody ass ay with HIV-1 p24 antigen detectionOrdered By: Dr. Juarez on 06-01-2022 HIV 1+2 Ab+HIV1 p24 Ag IA Ql Non-Reactive Nonreactive [facility] Hematocrit Auto (Bld) [Volum e fraction]Ordered By: Dr. Juarez on 06-01-2022 Hematocrit (Bld) [Volume fraction] 51.3 % 37-47 [facility] Laboratory - Chemistry and C hemistry - challengeOrdered By: Dr. Juarez on 06-01-2022 ALP [Catalytic activity/Vol] 116 U/L 45-117 [facility] ALT [Catalytic activity/Vol] 19 U/L 13-56 [facility] Globulin (S) [Mass/Vol] 4.0 g/dL 2.2-4.2 [facility] Laboratory - Hematology and Cell countsOrdered By: Dr. Juarez on 06-01-2022 Erythrocyte distribution width (RBC) [Entitic vol] 39.7 fL 35.1-43.9 [facility] Erythrocyte distribution width (RBC) [Ratio] 11.8 % 11.6-14.6 [facility] Immature granulocytes/100 WBC (Bld) 0.800 % 0.0-0.9 [facility] Comment on above: IG% - Immature Granu locytes (promyelocytes, myelocytes and metamyelocytes) > 1% indicates that a LEFT SHIFT is Present. MCH (RBC) [Entitic mass] 30.6 pg 27.0-32.0 [facility] Nucleated RBC/100 WBC (Bld) [Ratio] 0 % 0-5 [facility] MCHC Auto (RBC) [Mass/Vol]Or dered By: Dr. Juarez on 06-01-2022 MCHC (RBC) [Mass/Vol] 33.3 g/dL 32-36 [facility] No Panel InformationOrdered By: Dr. Juarez on 06-01-2022 Hepatitis B Surface Antigen Non-Reactive Nonreactive [facility] Hepatitis C Antibody Non-Reactive Nonreactive [facility] Comment on above: Non Reactive: < 0.8 Equivocal: >/= 0.8 to < 1.0 Reactive: >/= 1.0The CDC recommends that a reactive/equivocal HCV antibody result be followed up by the HCV Nucleic Acid Amplificationtest (032443) Platelets bldOrdered By: Dr. Juarez on 06-01-2022 Platelets (Bld) [#/Vol] 264 10*3/uL 150-450 [facility] Qualitative QuantiFERON-TB g old in tube testOrdered By: Dr. Juarez on 06-01-2022 M. tuberculosis tuberculin stim IFN-g Ql (Bld) 0 IU/mL . [facility] Serum hepatitis B virus core antibody detectionOrdered By: Dr. Juarez on 06-01-2022 HBV core Ab Ql (S) Negative Negative [facility] Comment on above: Performed at: [facility] [employer] [address] [id number] Director: Izaiah Elena PhD, Phone: [phone] Serum hepatitis B virus surf aleja antibody IgG detectionOrdered By: Dr. Juarez on 06-01-2022 HBV surface IgG Ql (S) Non-Reactive [facility] Comment on above: Non Reactive: Incons istent with immunity less than <10 mIU/mL Reactive: Consistent with immunity greater than or equal to 10 mIU/mL Serum or plasma albumin ely urement (mass/volume)Ordered By: Dr. Juarez on 06-01-2022 Albumin [Mass/Vol] 3.9 g/dL 3.2-5.0 [facility] Thin prep Papanicolaou smear with manual screeningOrdered By: Dr. Juarez on 06-01-2022 Thin prep Papanicolaou smear with manual screening 6 U/L 15-37 [facility] Thin prep Papanicolaou smear with manual screening Comment . [facility] Comment on above: QuantiFERON-TB Gold Plus is a qualitative indirect test forM tuberculosis infection (including disease) and isintended for use in conjunction with risk assessment,radiography, and other medical and diagnostic evaluations.The QuantiFERON-TB Gold Plus result is determined bysubtracting the Nil value from either TB antigen (Ag)value. The Mitogen tube serves as a control for the test. Thin prep Papanicolaou smear with manual screening 0 IU/mL . [facility] Thin prep Papanicolaou smear with manual screening > 10.00 IU/mL . [facility] Thin prep Papanicolaou smear with manual screening Negative Negative [facility] Comment on above: No response to M tub erculosis antigens detected.Infection with M tuberculosis is unlikely, but high riskindividuals should be considered for additional testing(ATS/IDSA/CDC Clinical Practice Guidelines, 2017). Thereference range is an Antigen minus Nil result of <0.35IU/mL.The specimen received for QuantiFERON testing was incubatedby the ordering institution. Specific procedures outlinedin our Directory of Services and in the package insert forthe QuantiFERON Gold (In Tube) test must be followed toenable for proper stimulation of cells for the productionof interferon gamma. Chemiluminescence immunoassaymethodology Absolute lymphocyte counton 10-30-2021 Lymphocytes Auto (Unsp spec) [#/Vol] 1.14 10*3/uL 0.83-4.51 [facility] Work Phone: Basophil percentageon 2021 Basophil percentage 0-5 SEEN /hpf [facility] Work Phone: Basophils/100 WBC (Bld) 0.3 % 0-1 [facility] Work Phone: Chloride [Moles/Vol] 106 mmol/L 98-107 [facility] Work Phone: Eosinophils/100 WBC (Bld) 0.3 % 0-5 [facility] Work Phone: Glucose [Mass/Vol] 314 mg/dL 74-106 [facility] Work Phone: Comment on above: Glucose result great er than or equal to 200 mg/dLsuggests DIABETES MELLITUS per A.D.A. criteria. Neutrophils (Bld) [#/Vol] 10.0 10*3/uL 2.0-7.7 [facility] Work Phone: Neutrophils/100 WBC (Bld) 83.8 % 47-70 [facility] Work Phone: Potassium [Moles/Vol] 4.1 mmol/L 3.5-5.1 [facility] Work Phone: Sodium [Moles/Vol] 133 mmol/L 136-145 [facility] Work Phone: WBC (Bld) [#/Vol] 11.9 10*3/uL 4.4-11.[address] [facility] Work Phone: Beta hCG serum qualon 2021 Beta HCG ( test) Ql Negative [facility] Work Phone: Bilirubin Test strip Ql (U)o n 10-30-2021 Bilirubin Ql (U) Negative Negative [facility] Work Phone: Blood erythrocytes count (nu mber/volume)on 10-30-2021 RBC (Bld) [#/Vol] 6.11 10*6/uL 4.2-5.[address] [facility] Work Phone: Blood hemoglobin measurement (mass/volume)on 10-30-2021 Hemoglobin (Bld) [Mass/Vol] 18.8 g/dL 12.0-15.0 [facility] Work Phone: Comment on above: CRITICAL VALUE VERIF IED. CALLED TO AVILA LUTZ10/30/21 1432 Sujatha Matta.RESULTS READ BACK BY SAME . Blood lymphocytes/100 leukoc yteson 10-30-2021 Lymphocytes/100 WBC (Bld) 9.5 % 19-41 [facility] Work Phone: Blood monocytes/100 leukocyt eson 10-30-2021 Monocytes/100 WBC (Bld) 5.3 % 0-10 [facility] Work Phone: Blood platelet mean volumeon 10-30-2021 Platelet mean volume (Bld) [Entitic vol] 10.3 fL 6.2-12.0 [facility] Work Phone: Determination of erythrocyte mean corpuscular volume (MCV)on 10-30-2021 MCV (RBC) [Entitic vol] 90.7 fL 81-99 [facility] Work Phone: Hematocrit Auto (Bld) [Volum e fraction]on 10-30-2021 Hematocrit (Bld) [Volume fraction] 55.4 % 37-47 [facility] Work Phone: Ketones Test strip Ql (U)on 10-30-2021 Ketones Ql (U) 15 mg/dl Negative [facility] Work Phone: Laboratory - Chemistry and C hemistry - challengeon 10-30-2021 CO2 [Moles/Vol] 25.0 mmol/L 21.0-32.0 [facility] Work Phone: Urea nitrogen/Creatinine [Mass ratio] 9.1 mg/mg 10-20 [facility] Work Phone: Laboratory - Hematology and Cell countson 10-30-2021 Erythrocyte distribution width (RBC) [Entitic vol] 38.4 fL 35.1-43.9 [facility] Work Phone: Erythrocyte distribution width (RBC) [Ratio] 11.5 % 11.6-14.6 [facility] Work Phone: Immature granulocytes/100 WBC (Bld) 0.800 % 0.0-0.9 [facility] Work Phone: Comment on above: IG% - Immature Granu locytes (promyelocytes, myelocytes and metamyelocytes) > 1% indicates that a LEFT SHIFT is Present. MCH (RBC) [Entitic mass] 30.8 pg 27.0-32.0 [facility] Work Phone: Nucleated RBC/100 WBC (Bld) [Ratio] 0 % 0-5 [facility] Work Phone: MCHC Auto (RBC) [Mass/Vol]on 10-30-2021 MCHC (RBC) [Mass/Vol] 33.9 g/dL 32-36 [facility] Work Phone: Mucus LM Ql (Urine sed)on Mucus Ql (Urine sed) 0 SEEN /hpf [facility] Work Phone: Nitrite Test strip Ql (U)on 10-30-2021 Nitrite Ql (U) Negative Negative [facility] Work Phone: No Panel Informationon 10-30 Estimated Creatinine Clearance Calc 63.27 ml/min [facility] Work Phone: Estimated GFR (MDRD) Amer 79 mL/min >60 [facility] Work Phone: Comment on above: GFR Calc Estimated GFR (MDRD) Non-Af Amer 65 mL/min >60 [facility] Work Phone: Comment on above: Non- GFR Calc Platelets bldon 10-30-2021 Platelets (Bld) [#/Vol] 216 10*3/uL 150-450 [facility] Work Phone: Protein Test strip Ql (U)on 10-30-2021 Protein Ql (U) 30 mg/dl Negative [facility] Work Phone: Review by pathologiston Pathologist review Roger (Unsp spec) [Interp] November [facility] Work Phone: Serum or plasma calcium ely urement (mass/volume)on 10-30-2021 Calcium [Mass/Vol] 8.9 mg/dL 8.5-10.1 [facility] Work Phone: Serum or plasma creatinine m easurement (mass/volume)on 10-30-2021 Creatinine [Mass/Vol] 0.99 mg/dL 0.55-1.02 [facility] Work Phone: Comment on above: The validity of the calculated GFR & GFRAA in patients over 70 years has not been determined. Clinical correlation is essential. Serum or plasma urea nitroge n measurement (mass/volume)on 10-30-2021 Urea nitrogen [Mass/Vol] 9 mg/dL 7-18 [facility] Work Phone: Squamous epithelial cells de tection in urine sediment by light microscopyon 10-30-2021 Epithelial cells.squamous LM Ql (Urine sed) 0 SEEN /hpf [facility] Work Phone: Thin prep Papanicolaou smear with manual screeningon 10-30-2021 Thin prep Papanicolaou smear with manual screening 2 5-15 [facility] Work Phone: Urine blood detectionon RBC Ql (U) 250 /ul Negative [facility] Work Phone: RBC Ql (U) 50-100 SEEN /hpf [facility] Work Phone: Urine clarityon 10-30-2021 Clarity (U) Clear Clear [facility] Work Phone: Urine color determinationon 10-30-2021 Color (U) Yellow Yellow [facility] Work Phone: Urine glucose detectionon Glucose Ql (U) 1000 mg/dl Normal [facility] Work Phone: Urine leukocyte esterase det ection by dipstickon 10-30-2021 Leukocyte esterase Test strip Ql (U) 25 /ul Negative [facility] Work Phone: Urine pHon 10-30-2021 pH (U) 6.0 [pH] [facility] Work Phone: Urine sediment bacteria coun t by microscopy (number/high power field)on 10-30-2021 Bacteria LM.HPF (Urine sed) [#/Area] 2 /[HPF] None Seen [facility] Work Phone: Urine specific gravity measu rementon 10-30-2021 Specific gravity (U) [Rel density] 1.015 [facility] Work Phone: Urobilinogen Auto test strip Ql (U)on 10-30-2021 Urobilinogen Ql (U) Normal mg/dl Normal [facility] Work Phone: CR Chest PA/LATon 01-01-2020 CR Chest PA/LAT Patient Name: KYRA GAMBLE Diagnostic Radiology Exam Date/Time 01/01/2020 15:05:30 EDT Exam CR Chest PA/LAT Ordering Physician MD BOGDAN, REESE Avila Accession Number [id number] CPT4 Codes 16353 () Reason For Exam rib pain Report Indication: Rib pain. Comparison 10/04/2018 and 10/04/2018. FINDINGS: Chest two views and right ribs three views performed. The lungs are clear. No consolidation or major volume loss seen. Mediastinum unremarkable. No effusion. No fracture visualized. The etiology of patient's chest pain is uncertain. For persistent or progressive symptoms consider bone scan or CT chest. Report Dictated on Workstation: [id number] Final Dictating Physician: MD MITCHELL JOHN Signed Date and Time: 01/01/2020 3:25 pm Signed by: MD MITCHELL JOHN Transcribed Date and Time: 01/01/2020 3:26 Normal [facility] CR Ribs 2 Views Righton 12-22 CR Ribs 2 Views Right Patient Name: KYRA ALVARADO Diagnostic Radiology Exam Date/Time 01/01/2020 15:05:30 EDT Exam CR Ribs 2 Views Right Ordering Physician MD MCFADDEN RICHARD H Accession Number [id number] CPT4 Codes 25485 () Reason For Exam rib pain Report Indication: Rib pain. Comparison 10/04/2018 and 10/04/2018. FINDINGS: Chest two views and right ribs three views performed. The lungs are clear. No consolidation or major volume loss seen. Mediastinum unremarkable. No effusion. No fracture visualized. The etiology of patient's chest pain is uncertain. For persistent or progressive symptoms consider bone scan or CT chest. Report Dictated on Workstation: [id number] Final Dictating Physician: MD MITCHELL JOHN Signed Date and Time: 01/01/2020 3:25 pm Signed by: MD MITCHELL JOHN Transcribed Date and Time: 01/01/2020 3:26 Normal [facility] XR CHEST STANDARD (2 VW)on 0 01-01-2020 Patient Name: KYRA GAMBLE ---Diagnostic Radiology--- Exam Date/Time 01/01/2020 15:05:30 EDT Exam CR Chest PA/LAT Ordering Physician MD MCFADDEN RICHARD H Accession Number [id number] CPT4 Codes 95240 () Reason For Exam rib pain Report Indication: Rib pain. Comparison 10/04/2018 and 10/04/2018. FINDINGS: Chest two views and right ribs three views performed. The lungs are clear. No consolidation or major volume loss seen. Mediastinum unremarkable. No effusion. No fracture visualized. The etiology of patient's chest pain is uncertain. For persistent or progressive symptoms consider bone scan or CT chest. Report Dictated on Workstation: [id number] --- Final --- Dictating Physician: MD MITCHELL JOHN Signed Date and Time: 01/01/2020 3:25 pm Signed by: MD MITCHELL JOHN Transcribed Date and Time: 01/01/2020 3:26 [place], [place] [facility] Incoming Radiology Results From [facility] - 01/01/2020 3:27 PM EDT Patient Name: KYRA GAMBLE ---Diagnostic Radiology--- Exam Date/Time 01/01/2020 15:05:30 EDT Exam CR Chest PA/LAT Ordering Physician MD MCFADDEN RICHARD H Accession Number [id number] CPT4 Codes 57351 () Reason For Exam rib pain Report Indication: Rib pain. Comparison 10/04/2018 and 10/04/2018. FINDINGS: Chest two views and right ribs three views performed. The lungs are clear. No consolidation or major volume loss seen. Mediastinum unremarkable. No effusion. No fracture visualized. The etiology of patient's chest pain is uncertain. For persistent or progressive symptoms consider bone scan or CT chest. Report Dictated on Workstation: [id number] --- Final --- Dictating Physician: MD MITCHELL JOHN Signed Date and Time: 01/01/2020 3:25 pm Signed by: MD MITCHELL JOHN Transcribed Date and Time: 01/01/2020 3:26 [place] XR RIBS RIGHT (2 VIEWS)on Patient Name: KYRA GAMBLE ---Diagnostic Radiology--- Exam Date/Time 01/01/2020 15:05:30 EDT Exam CR Ribs 2 Views Right Ordering Physician MD MCFADDEN RICHARD H Accession Number [id number] CPT4 Codes 60064 () Reason For Exam rib pain Report Indication: Rib pain. Comparison 10/04/2018 and 10/04/2018. FINDINGS: Chest two views and right ribs three views performed. The lungs are clear. No consolidation or major volume loss seen. Mediastinum unremarkable. No effusion. No fracture visualized. The etiology of patient's chest pain is uncertain. For persistent or progressive symptoms consider bone scan or CT chest. Report Dictated on Workstation: [id number] --- Final --- Dictating Physician: MD MITCHELL JOHN Signed Date and Time: 01/01/2020 3:25 pm Signed by: MD MITCHELL JOHN Transcribed Date and Time: 01/01/2020 3:26 [place], [place] [facility] Incoming Radiology Results From [facility] - 01/01/2020 3:26 PM EDT Patient Name: KYRA GAMBLE ---Diagnostic Radiology--- Exam Date/Time 01/01/2020 15:05:30 EDT Exam CR Ribs 2 Views Right Ordering Physician MD BOGDAN, REESE Avila Accession Number [id number] CPT4 Codes 13587 () Reason For Exam rib pain Report Indication: Rib pain. Comparison 10/04/2018 and 10/04/2018. FINDINGS: Chest two views and right ribs three views performed. The lungs are clear. No consolidation or major volume loss seen. Mediastinum unremarkable. No effusion. No fracture visualized. The etiology of patient's chest pain is uncertain. For persistent or progressive symptoms consider bone scan or CT chest. Report Dictated on Workstation: [id number] --- Final --- Dictating Physician: MD MITCHELL JOHN Signed Date and Time: 01/01/2020 3:25 pm Signed by: MD MITCHELL JOHN Transcribed Date and Time: 01/01/2020 3:26 [place], [place] Progress Noteon 05-11-2018 Emergency Department Rn Authentication Interface Message Text Via family member, pt would like to try eucrisa for atopic derm, Rx sent. RK Normal [facility] Vital Signs Date Time Vital Sign Value Performing Clinician Quin delgadillo 08-03-2024 12:59-0500 Body height 162.56 cm No Primary Care Physician [facility] 08-03-2024 12:59-0500 Body mass index (BMI) [Ratio] 28.6 kg/m2 No Primary Care Physician [facility] 08-03-2024 12:59-0500 Body temperature 97.2 [degF] No Primary Care Physician [facility] 08-03-2024 12:59-0500 Body weight 75.74 kg No Primary Care Physician [facility] 08-03-2024 12:59-0500 Diastolic blood pressure 133 mm[Hg] No Primary Care Physician [facility] 08-03-2024 12:59-0500 Heart rate 84 /min No Primary Care Physician [facility] 08-03-2024 12:59-0500 Respiratory rate 16 /min No Primary Care Physician [facility] 08-03-2024 12:59-0500 SaO2% (BldA) [Mass fraction] 100 % No Primary Care Physician [facility] 08-03-2024 12:59-0500 Systolic blood pressure 161 mm[Hg] No Primary Care Physician [facility] 08-03-2022 13:04-0500 Body height 162.56 cm [facility] 08-03-2022 13:04-0500 Body mass index (BMI) [Ratio] 29.6 kg/m2 [facility] 08-03-2022 13:04-0500 Body temperature 97.2 [degF] [facility] 08-03-2022 13:04-0500 Body weight 78.24 kg [facility] 08-03-2022 13:04-0500 Diastolic blood pressure 121 mm[Hg] [facility] [facility] 13:04-0500 Heart rate 110 /min [facility] 08-03-2022 13:04-0500 Respiratory rate 20 /min [facility] 08-03-2022 13:04-0500 SaO2% (BldA) [Mass fraction] 96 % [facility] 08-03-2022 13:04-0500 Systolic blood pressure 162 mm[Hg] [facility] 10-30-2021 16:16-0400 Heart rate 64 /min [facility] Work Phone: 10-30-2021 16:16-0400 SaO2% (BldA) [Mass fraction] 99 % [facility] Work Phone: 10-30-2021 15:22-0400 Diastolic blood pressure 89 mm[Hg] [facility] Work Phone: 10-30-2021 15:22-0400 Respiratory rate 16 /min [facility] Work Phone: 10-30-2021 15:22-0400 Systolic blood pressure 143 mm[Hg] [facility] Work Phone: 10-30-2021 13:32-0400 Body height 162.56 cm [facility] Work Phone: 10-30-2021 13:32-0400 Body mass index (BMI) [Ratio] 30.9 kg/m2 [facility] Work Phone: 10-30-2021 13:32-0400 Body temperature 97 [degF] [facility] Work Phone: 10-30-2021 13:32-0400 Body weight 81.64 kg [facility] Work Phone: Encounters Encounter Date Encounter Type Care Provider Facility Start: 12-02-2024 End: 12-02-2024 ambulatory Praveena REYNA Facility:[facility] Start: 11-26-2024 End: 11-26-2024 ambulatory No Primary Care Physician [facility] Work Phone: Start: 11-26-2024 End: 11-26-2024 Patient encounter procedure Praveena Cook PA-C -Laboratory, Specimen Work Phone: Start: 11-26-2024 End: 11-26-2024 Patient encounter procedure Praveena Cook PA-C -[facility] Work Phone: Start: 11-26-2024 End: 11-26-2024 ambulatory Praveena REYNA Facility:[facility] Start: 11-26-2024 End: 11-26-2024 ambulatory Praveena REYNA Facility:[facility] Start: 08-03-2024 End: 08-03-2024 Emergency department patient visit Dr. Sean Waite DO -Emergency Department Work Phone: Start: 12-13-2023 End: 12-13-2023 ambulatory No Primary Care Physician Facility:[facility] Start: 10-25-2022 End: 10-25-2022 ambulatory [facility] Work Phone: Start: 10-25-2022 End: 10-25-2022 Patient encounter procedure [facility] Start: 10-19-2022 End: 10-19-2022 ambulatory [facility] Work Phone: Start: 10-19-2022 End: 10-19-2022 Patient encounter procedure [facility] Start: 09-21-2022 End: 09-21-2022 ambulatory [facility] Work Phone: Start: 09-21-2022 End: 09-21-2022 Patient encounter procedure [facility]Radiology, [facility] Start: 08-03-2022 End: 08-03-2022 Patient encounter procedure [facility] Start: 08-01-2022 End: 08-01-2022 ambulatory [facility] Work Phone: Start: 08-01-2022 End: 08-01-2022 Patient encounter procedure [facility] Start: 06-01-2022 End: 06-01-2022 ambulatory [facility] Work Phone: Start: 06-01-2022 End: 06-01-2022 Patient encounter procedure [facility] Start: 10-30-2021 End: 10-30-2021 Emergency department patient visit [facility]-Emergency Department Start: 01-22-2020 End: 01-22-2020 Subsequent hospital visit by physician Reese Mcfadden Work Phone: [facility] Comment on above: Arrived Start: 01-01-2020 End: 01-01-2020 Subsequent hospital visit by physician Reese Mcfadden Work Phone: [facility] Procedures Date Procedure Procedure Detail Performing Clinician Start: 11-26-2024 Gram stain microscopy N o Primary Care Physician Start: 11-26-2024 Microbial culture, routine No Primary Care Physician Start: 10-25-2022 Ultrasonography of breast Reese Mcfadden OLS Start: 10-19-2022 Screening mammography R ichkatie Mcfadden OLS Start: 09-21-2022 X-ray of lumbosacral spine Reese Mcfadden Start: 10-30-2021 CT of abdomen and pe lvis without contrast Start: 01-01-2020 Radex ribs unilatera l 2 views Reese Mcfadden Work Phone: Start: 01-01-2020 Radiologic exam ches t 2 views Reese Mcfadden Work Phone: Plan of Treatment Date Care Activity Detail Author Start: 11-26-2024 Source specific culture [facility] Start: 11-26-2024 Anaerobic microbial culture Anaerobic Culture [facility] Start: 08-03-2024 [facility] Start: 03-24-2020 Influenza vaccination [place], [place] Start: 2018 Lipid panel Lipid screen [place] Start: 09-18-2016 HbA1c (Bld) [Mass fraction] A1C test (Diabetic or Prediabetic) [place] Start: 1999 Screening for malignant neoplasm of cervix Cervical cancer screen [place], [place] Start: 1997 DTaP/Tdap/Td vaccine (1 - Tdap) DTaP/Tdap/Td vaccine (1 - Tdap) [place] Start: 1993 HIV screening HIV screen [place], [place] Start: 1984 Pneumococcal 0-64 years Vaccine (1 of 1 - PPSV23) Pneumococcal 0-64 years Vaccine (1 of 1 - PPSV23) [place], [place] Patient Education [facility] Work Phone: Patient referral [facility] Work Phone: Payers Date Payer Category Payer Self-pay [id number] 2023 Medicaid [id number] 2023 Private Health Insurance [id number] 2016 Unknown [employer] xxxxxxxxxxx 2016-Present [phone] [address] [place] [address] xxxxxxxxxxx [id number] Unknown [facility] [id number] Unknown [id number] Unknown [id number] Unknown [id number] Unknown [id number] Unknown 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 Start: 02-27-2019 Spouse/ Signif icant Other [facility] Start: 1980 Sex Assigned At Female W [facility] Evaluation note 11-26-2024 Note Date & Type Note Facility 11-26-2024 Evaluation note Diagnosis Onset Date Resolution Abscess of buttock, right acute November 26, 2024 1: 58pm [facility] Work Phone: Evaluation note Note Date & Type Note Facility Evaluation note No assessment information availa ble [facility] Work Phone: Evaluation note Note Date & Type Note Facility Evaluation note Diagnosis Onset Date Acid reflux acute Epigastric pain acute [facility] Work Phone: Reason for referral (narrative) Note Date & Type Note Facility Reason for referral (narrative) No reason for referral information available [facility] Work Phone: Summary Purpose Family History No Family History Records Found Relationship Condition Age at Onset Recorded Date/T tigre mother Diabetes mellitus Unknown Hypertension Unknown father Hypertension Unknown Advance Directives No Advanced Directives Records FoundDocuments on File Type Date Recorded 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 No August 03, 2024 2:49pm Chief Complaint and Reason for Visit Chief Complaint flank pain Chief Complaint ADOMINAL PAIN N/V Reason for Visit Acid reflux Epigastric pain Chief Complaint ADOMINAL PAIN N/V SCREENING ABNORMAL MAMMOGRAM Reason for Visit Acid reflux Epigastric pain Chief Complaint Admit Date RASH August 03, 2024 1 2:58pm BOIL ON BUTTOCKS November 26, 2024 1:58pm Reason for Visit Admit Date Abscess of buttock, right November 26, 2024 1:58pm Additional Source Comments INFORMATION SOURCE (unrecogn ized section and content) DATE CREATED AUTHOR 02/22/2019 [facility] DATE CREATED AUTHOR AUTHOR'S ORGANIZ ATION 02/08/2020 [facility] DATE CREATED AUTHOR AUTHOR'S ORGANIZ ATION 12/03/2024 [facility] Goals (unrecognized section and content) Goals may be documented in a n alternate sectionGoals may be documented in an alternate sectionGoals may be documented in an alternate sectionGoals may be documented in an alternate sectionGoals may be documented in an alternate sectionGoals may be documented in an alternate sectionGoals may be documented in an alternate section Care Teams (unrecognized sec tion and content) Team Status: Active Member Role Status Dates Dr. Liz Vail DO Family Provider Active No Primary Care Physician Primary Care Provider Active Team Status: Inactive Member Role Status Dates Reese Garciadarcy Primary Care Provider Active Dr. Paul Erazo MD Attending Provider Active No Primary Care Physician Referring Provider Active Team Status: Inactive Member Role Status Dates Reese Garciadarcy Primary Care Provider Active Dr. Ford Juarez MD Attending Provider, Referring Pro vider Active Team Status: Inactive Member Role Status Dates Reese Mcfadden Primary Care Provider Active CAMACHO ANN , HUMAN RESOURCES ANALYST-C Attending Provider, Referring Provider Active Team Status: Inactive Member Role Status Dates No Primary Care Physician Primary Care Provider Active Liz Ellsworth NP, HUMAN RESOURCES ANALYST-C Attending Provider Active Team Status: Inactive Member Role Status Dates Reese Mcfadden OLS Primary Care Provider Active Dr. Paul Erazo MD Attending Provider Active No Primary Care Physician Referring Provider Active Team Status: Inactive Member Role Status Dates CAMACHO ANN , HUMAN RESOURCES ANALYST-C Attending Provider Active No Primary Care Physician Primary Care Provider Active Team Status: Inactive Member Role Status Dates Reese Mcfadden OLS Primary Care Provider Active CAMACHO SETH , HUMAN RESOURCES ANALYST-C Attending Provider, Referring Provider Active Team Status: Active Member Role Status Dates No Primary Care Physician Primary Care Provider Active CAMACHO SETH , HUMAN RESOURCES ANALYST-C Attending Provider Active Team Status: Inactive Member Role Status Dates No Primary Care Physician Primary Care Provider Active CAMACHO SETH , HUMAN RESOURCES ANALYST-C Attending Provider Active Team Status: Active Member Role Status Dates Dr. Liz Vail DO Family Provider Active [facility] Primary Care Provider A ctive Team Status: Inactive Member Role Status Dates No Primary Care Physician Primary Care Provider Active Start: August 03, 2024 End: August 03, 2024 Dr. Sean Waite DO Attending Provider Active Start: August 03, 2024 End: August 03, 2024 Dr. Sean Waite DO Emergency Provider Active Start: August 03, 2024 End: August 03, 2024 Team Status: Inactive Member Role Status Dates Praveena REYNA PA-C Attending Provider Active Start: November 26, 2024 End: November 26, 2024 [facility] Primary Care Provider A ctive Start: November 26, 2024 End: November 26, 2024 [facility] Referring Provider Acti ve Start: November 26, 2024 End: November 26, 2024 Team Status: Inactive Member Role Status Dates [facility] Primary Care Provider A ctive Start: November 26, 2024 End: November 26, 2024 Praveena REYNA PA-C Attending Provider Active Start: November 26, 2024 End: November 26, 2024 Praveena REYNA PA-C Referring Provider Active Start: November 26, 2024 End: November 26, 2024 FOR RECORDS PERTAINING TO PATIENTS WHO ARE OR HAVE BEEN ENROLLED IN A CHEMICAL DEPENDENCY/SUBSTANCEABUSE PROGRAM, SOME INFORMATION MAY BE OMITTED. This clinical summary was aggregated from multiple sources. Caution should be exercised in using it in the provision of clinical care. This summary normalizes information from multiple sources, and as a consequence, information in this document may materially change the coding, format and clinical context of patient data. In addition, data may be omitted in some cases. CLINICAL DECISIONS SHOULD BE BASED ON THE PRIMARY CLINICAL RECORDS. [employer] provides no warranty or guarantee of the accuracy or completeness of information in this document.
[2025-06-24 16:56] LABS: Color, Urine Yellow (Yellow); Glucose, Dipstick Normal (Normal); Ketone-Dipstick Negative (Negative); Leukocyte Esterase-Dipstick Negative /ul (Negative); Nitrite-Dipstick Negative (Negative); Occult Blood-Urine 25 /ul (Negative); Protein-Dipstick 15 mg/dl (Negative); Specific Gravity, Urine 1.015 (1.002-1.030); Urine Bilirubin Dipstick Negative (Negative)
[2025-06-24 16:58] LABS: Hematocrit 49.7 % (37-47); Hemoglobin 16.5 g/dL (12.0-15.0); Immature Granulocytes Count 0.030 X10^3/uL (0.0-0.0); Mean Corp Hgb Conc 33.2 g/dL (32-36); Mean Corpuscular Volume 90.9 fL (81-99); Mean Platelet Vol. 10.7 fl (6.2-12.0); NRBC Flagged by Analyzer 0 % (0-5); Platelet Count 223 K/mm3 (150-450); RBC Distribution Width CV 11.9 % (11.6-14.6); RBC Distribution Width SD 39.6 fl (35.1-43.9); Red Blood Count 5.47 M/mm3 (4.2-5.4); White Blood Count 8.1 K/mm3 (4.4-11.0)
[2025-06-24 17:18] LABS: Microalbumin,Random Urine < 12.0 mg/L (<20 mg/L)
[2025-06-24 17:21] LABS: AST(SGOT) 12 U/L (<=31); Alanine Aminotransfer ALT/SGPT 8 U/L (<=34); Albumin, Serum 4.0 g/dL (3.5-5.0); Alkaline Phosphatase 72 U/L (35-104); Anion Gap 10 (5-15); BUN 10 mg/dL (4-19); BUN/Creat Ratio 11.7 RATIO (10-20); Calcium,Total 9.2 mg/dL (7.6-11.0); Carbon Dioxide 23.2 mmol/L (21.0-32.0); Chloride 104 mmol/L (98-108); Cholesterol 193 mg/dL (<=200); Globulin 2.7 g/dL (2.2-4.2); Glucose 125 mg/dL (70-99); Low Density Lipoprotein Calc. 134 mg/dL; Potassium 4.1 mmol/L (3.3-5.1); Triglycerides 135 mg/dL; Very Low Density Lipoprotein 27 mg/dL (5-40); cholesterol:hdl ratio screen 5.58
[2025-06-25 08:32] LABS: Creatinine, Urine (random) 102.00 mg/dL (28.00-217.00)
== END | disposition home or self-care (01) ==
DX: R10.A2 Flank pain, left side (principal); E11.9 Type 2 diabetes mellitus without complications
CPT/HCPCS: 36415; 80053; 80061; 81002; 82043; 82570; 84443; 85025; 87086; 87088

== ENCOUNTER → 2025-07-02 | Outpatient (CLI) | payer OTHER, MEDICAID, SELFPAY ==
--- NOTE | 2025-07-02 12:48 | US_ITS ---
PROCEDURE: KIDNEY AND BLADDER 07/02/2025 REASON FOR EXAM: FLANK PAIN TECHNIQUE: Procedure Code: USKI Modality: US Procedure: KIDNEY AND BLADDER FINDINGS: Right kidney measures 11 cm and left kidney measures 11.5 cm. Normal echotexture of bilateral kidneys. No hydronephrosis. No renal stones. Urinary bladder is unremarkable. US/Kidney and Bladder IMPRESSION: No hydronephrosis. Reading Location: [id number]
--- OUTSIDE RECORDS SUMMARY | 2025-07-02 13:02 | XMS RPT_ITS | CCD ---
Author Organization [facility] Care Team Providers Care Life Coach Name Role Phone Hannanagi Liz Priti Primary Care Provider Reese Mcfadden Primary Care Provider Unavailab Dr. [...] Provider Praveena Cook PA-C Attending Provider [facility] Primary Care Pro vider [facility] Referring Provid er Praveena Cook PA-C Referring Provider Care Physician, No Primary Primary Care Unava ilable Jennifer Addison Referring Unavailabl fernando Boss Jennifer Fernandez Attending Unavailabl e Praveena Clemons Referring Unavailable Praveena Clemons Attending [facility]available [facility] Unavailable Sean Waite Attending Unavailable Care Physician, No Primary Primary Care Unava ilable Praveena Clemons Attending [facility]available [facility] Referring [facility]available [facility] Primary Care Unavailable Praveena Clemons Attending [facility]available [facility] Referring [facility]available [facility] Primary Care Unavailable Allergies Allergy Classification Reported Allergen(s) Allergy Type Date of Onset Reaction(s) Facility (7 sources) Sulfamethoxazole Drug Allergy 2 [facility] (7 sources) Trimethoprim Drug Allergy 2 [facility] (1 source) Sulfamethoxazole Drug Allergy 5 [facility] Repository (1 source) Trimethoprim Drug Allergy 5 [facility] Repository Medications Current Medications Medication Drug [...] Surgery Visit Reporton 12-02 Surgery Visit Report [facility] [address] [place] [address] OFFICE VISIT Date of Service: 12/02/24 MR#: [id number] Acct: [id number] Name: KYRA GAMBLE Rep #: [id number] : 1980 Provider: KARL michel Age/Sex: 44/F Location: [facility] Status: Signed Intake Vital Signs 08/03/24 [...] Op Diagnoses Abscess of buttock, right L02.31 [facility] Medical History Acid reflux Diabetes mellitus [...] Siegel Signature: Date (if applicable) CC: Normal [facility] Culture, Anaerobic Any Sourc neil 12-01-2024 CUAN No anaerobic bacteri a isolated. Normal [facility] Comment on above: Performed By: #### M 100.4001, M100.1999, M100.3000 #### [facility] [address] [place], [address] Wound Cultureon 11-28-2024 WC Staphylococcus pseudintermediu Amount Growth 2+ Staphylococcus pseudintermediu: REACTION Doxycycline Islt JANEY <=0.5 Clindamycin Islt JANEY <=0.12 S Clindamycin.induced Susc Islt NEG Erythromycin Islt JANEY <=0.25 S Gentamicin Islt JANEY <=0.5 S Linezolid Islt JANEY 1 S Oxacillin Susc Islt 1 R Tetracycline Islt JANEY <=1 S TMP SMX Islt JANEY <=10 S Vancomycin Islt JANEY <=0.5 S Normal [facility] Comment on above: Performed By: #### M 100.4001, M100.1999, M100.3000 #### [facility] [address] [place], [address] Gram Stainon 11-27-2024 GS Gram Stain 4+ White Blood Cells 2+ Gram positive rods No Epithelial cells Normal [facility] Comment on above: Performed By: #### M 100.4001, M100.1999, M100.3000 #### [facility] [address] [place], [address] Gram stainOrdered By: Praveena Cook on 11-26-2024 Microscopic observation Gram stain Nom (Unsp spec) [facility] Routine wound cultureOrdered By: Praveena Cook on 11-26-2024 Microbial culture, routine Staphylococcus pseudintermediu Abnormal [facility] Surgery Visit Reporton 11-26 Surgery Visit Report [facility] [address] [place] [address] OFFICE VISIT Date of Service: 11/26/24 MR#: [id number] Acct: [id number] Name: KYRA GAMBLE Rep #: [id number] : 1980 Provider: KARL michel Age/Sex: 44/F [place] [facility] Status: Signed Intake Vital Signs 08/03/24 12:59 [...] area was (more content not included)... Normal [facility] Emergency Department Summary on 08-03-2024 Emergency Department Summary [facility] Medical Records Department [address] [place] [address] Emergency Department Summary 08/03/24 MR#: [id number] Acct: [id number] Name: KYRA GAMBLE Rep #: [id number] : 1980 43 From: Liz REYNA PCP: [...] flares around her eyes. She called her cancer genetics assistant, Dr. Ford Juarez, who sent in doxycycline. She will finish the antibiotics tomorrow but it has not improved. She is here requesting a steroid shot as that has worked in the past. She denies fever or chills, open wounds or drainage, or visual changes. [facility] Medical History Acid reflux Diabetes mellitus [...] Ox 100 Oxygen Delivery Method Room Air [facility] Narr[place] Medical decision making narrative: Patient has a flare of psoriasis in the bilateral periorbital region and right elbow. She has had similar symptoms in the past. She is under the care of a cancer genetics assistant for this. She has no signs of superimposed cellulitis or abscess. She is on doxycycline from her cancer genetics assistant. I ordered an IM Kenalog shot as this has worked well for her in the past and she prefers this over oral steroids. I recommended close follow-up with her specialist and she was discharged in stable condition. [facility] Narrative Medical decision making narrative: Patient has a flare of psoriasis in the bilateral periorbital region and right elbow. She has had similar symptoms in the past. She is under the care of a cancer genetics assistant for this. She has no signs of superimposed cellulitis or abscess. She is on doxycycline from her cancer genetics assistant. I ordered an IM Kenalog shot as [...] management plan. This note was generated with [employer] dictation software. It may contain incorrect words, spelling, and punctuation that were n (more content not included)... Normal [facility] SCRN MAMM (CAD)W/JUAN PABLO BILATo n 12-13-2023 SCRN MAMM (CAD)W/JUAN PABLO BILAT [facility] Imaging Services [address] [place], [place] [address] SCRN MAMM (CAD)W/JUAN PABLO BILAT MR#: [id number] Acct: [id number] Name: KYRA GAMBLE Rep #: [id number] : 1980 F 43 From: Reese Vila MD PCP: Care Physician,No Primary Status: [facility] Study: SCRN MAMM (CAD)W/JUAN PABLO BILAT Date of Exam: 11/22 09/16 Exam# [id number] Ordering Dr: Jennifer Boss [facility] GAS METER CHECKER-C [id number] MAMMOGRAPHY - BILATERAL SCREENING 3-D TOMOSYNTHESIS REASON [...] Vila MD at 15:22 EDT , CC: [facility] DORCAS Boss; No Primary Care Physician Call Person: Signed Normal [facility] Basophil percentageOrdered B y: CAMACHO ANN on 08-01-2022 Bilirubin [Mass/Vol] 1.00 mg/dL 0.20-1.00 [facility] Comment on above: For patients on eltr ombopag therapy, use of Dimension [place] TBIL is not recommended. Chloride [Moles/Vol] 102 mmol/L 98-107 [facility] Glucose [Mass/Vol] 202 mg/dL 74-106 [facility] Comment on above: Glucose result great er than or equal to 200 mg/dLsuggests DIABETES MELLITUS per A.D.A. criteria. Potassium [Moles/Vol] 4.4 mmol/L 3.5-5.1 [facility] Protein [Mass/Vol] 7.6 g/dL 6.4-8.2 [facility] Sodium [Moles/Vol] 138 mmol/L 136-145 [facility] Laboratory - Chemistry and C hemistry - challengeOrdered By: CAMACHO ANN on 08-01-2022 ALP [Catalytic activity/Vol] 101 U/L 45-117 [facility] ALT [Catalytic activity/Vol] 26 U/L 13-56 [facility] CO2 [Moles/Vol] 24.0 mmol/L 21.0-32.0 [facility] Globulin (S) [Mass/Vol] 3.6 g/dL 2.2-4.2 [facility] Urea nitrogen/Creatinine [Mass ratio] 10.5 mg/mg 10-20 [facility] No Panel InformationOrdered By: CAMACHO ANN on 08-01-2022 Estimated GFR (MDRD) Amer 82 mL/min >60 [facility] Comment on above: GFR Calc Estimated GFR (MDRD) Non-Af Amer 68 mL/min >60 [facility] Comment on above: Non- GFR Calc Serum or plasma albumin ely urement (mass/volume)Ordered By: CAMACHO ANN on 08-01-2022 Albumin [Mass/Vol] 4.0 g/dL 3.2-5.0 [facility] Serum or plasma albumin/glob ulin mass ratioOrdered By: CAMACHO ANN on 08-01-2022 Albumin/Globulin [Mass ratio] 1.1 {ratio} 0.9-2.4 [facility] Serum or plasma calcium ely urement (mass/volume)Ordered By: CAMACHO ANN on 08-01-2022 Calcium [Mass/Vol] 9.5 mg/dL 8.5-10.1 [facility] Serum or plasma creatinine m easurement (mass/volume)Ordered By: CAMACHO ANN on 08-01-2022 Creatinine [Mass/Vol] 0.95 mg/dL 0.55-1.02 [facility] Comment on above: The validity of the calculated GFR & GFRAA in patients over 70 years has not been determined. Clinical correlation is essential. Serum or plasma urea nitroge n measurement (mass/volume)Ordered By: CAMACHO ANN on 08-01-2022 Urea nitrogen [Mass/Vol] 10 mg/dL 7-18 [facility] Thin prep Papanicolaou smear with manual screeningOrdered By: CAMACHO ANN on 08-01-2022 Thin prep Papanicolaou smear with manual screening 9 U/L 15-37 [facility] Thin prep Papanicolaou smear with manual screening 12 5-15 [facility] Whole blood hemoglobin A1c/t otal hemoglobin ratio (mass fraction)Ordered By: CAMACHO ANN on 08-01-2022 HbA1c (Bld) [Mass fraction] 8.6 % 3.8-5.6 [facility] Comment on above: Normal < 5.7 % Predi abetic 5.7 - 6.4 % Diabetic >or= 6.5 % Please note range changes. Absolute lymphocyte countOrd ered By: Dr. Juarez on 06-01-2022 Lymphocytes Auto (Unsp spec) [#/Vol] 2.02 10*3/uL 0.83-4.51 [facility] Basophil percentageOrdered B y: Dr. Juarez on 06-01-2022 Basophils/100 WBC (Bld) 0.4 % 0-1 [facility] Bilirubin [Mass/Vol] 0.60 mg/dL 0.20-1.00 [facility] Comment on above: For patients on eltr ombopag therapy, use of [place] TBIL is not recommended. Eosinophils/100 WBC (Bld) 0.5 % 0-5 [facility] Neutrophils (Bld) [#/Vol] 6.8 10*3/uL 2.0-7.7 [facility] Neutrophils/100 WBC (Bld) 70.1 % 47-70 [facility] Protein [Mass/Vol] 7.9 g/dL 6.4-8.2 [facility] WBC (Bld) [#/Vol] 9.6 10*3/uL 4.4-11.0 [facility] Blood erythrocytes count (nu mber/volume)Ordered By: Dr. Juarez on 06-01-2022 RBC (Bld) [#/Vol] 5.58 10*6/uL 4.2-5.4 [facility] Blood hemoglobin measurement (mass/volume)Ordered By: Dr. Juarez on 06-01-2022 Hemoglobin (Bld) [Mass/Vol] 17.1 g/dL 12.0-15.0 [facility] Blood lymphocytes/100 leukoc ytesOrdered By: Dr. Juarez on 06-01-2022 Lymphocytes/100 WBC (Bld) 21.0 % 19-41 [facility] Blood monocytes/100 leukocyt esOrdered By: Dr. Juarez on 06-01-2022 Monocytes/100 WBC (Bld) 7.2 % 0-10 [facility] Blood platelet mean volumeOr dered By: Dr. Juarez on 06-01-2022 Platelet mean volume (Bld) [Entitic vol] 10.5 fL 6.2-12.0 [facility] Determination of erythrocyte mean corpuscular volume (MCV)Ordered By: Dr. Juarez on 06-01-2022 MCV (RBC) [Entitic vol] 91.9 fL 81-99 [facility] Direct bilirubinOrdered By: Dr. Juarez on 06-01-2022 Bilirubin.direct [Mass/Vol] 0.14 mg/dL 0.00-0.30 [facility] HIV 1 and HIV-2 antibody ass ay with HIV-1 p24 antigen detectionOrdered By: Dr. Juarez on 06-01-2022 HIV 1+2 Ab+HIV1 p24 Ag IA Ql Non-Reactive Nonreactive [facility] Hematocrit Auto (Bld) [Volum e fraction]Ordered By: Dr. Juarez on 06-01-2022 Hematocrit (Bld) [Volume fraction] 51.3 % 37-47 [facility] Laboratory - Chemistry and C hemistry - challengeOrdered By: Dr. Juarez on 06-01-2022 ALP [Catalytic activity/Vol] 116 U/L 45-117 [facility] ALT [Catalytic activity/Vol] 19 U/L 13-56 [facility] Globulin (S) [Mass/Vol] 4.0 g/dL 2.2-4.2 [facility] - Hematology and Cell countsOrdered By: Dr. Juarez on 06-01-2022 Erythrocyte distribution width (RBC) [Entitic vol] 39.7 fL 35.1-43.9 [facility] Erythrocyte distribution width (RBC) [Ratio] 11.8 % 11.6-14.6 [facility] Immature granulocytes/100 WBC (Bld) 0.800 % 0.0-0.9 [facility] Comment on above: IG% - Immature Granu locytes (promyelocytes, myelocytes and metamyelocytes) > 1% indicates that a LEFT SHIFT is Present. MCH (RBC) [Entitic mass] 30.6 pg 27.0-32.0 [facility] Nucleated RBC/100 WBC (Bld) [Ratio] 0 % 0-5 [facility] MCHC Auto (RBC) [Mass/Vol]Or dered By: Dr. Juarez on 06-01-2022 MCHC (RBC) [Mass/Vol] 33.3 g/dL 32-36 [facility] No Panel InformationOrdered By: Dr. Juarez on 06-01-2022 Hepatitis B Surface Antigen Non-Reactive Nonreactive [facility] Hepatitis C Antibody Non-Reactive Nonreactive [facility] Comment on above: Non Reactive: < 0.8 Equivocal: >/= 0.8 to < 1.0 Reactive: >/= 1.0The CDC recommends that a reactive/equivocal HCV antibody result be followed up by the HCV Nucleic Acid Amplificationtest (715586) Platelets bldOrdered By: Dr. Juarez on 06-01-2022 Platelets (Bld) [#/Vol] 264 10*3/uL 150-450 [facility] Qualitative QuantiFERON-TB g old in tube testOrdered By: Dr. Juarez on 06-01-2022 M. tuberculosis tuberculin stim IFN-g Ql (Bld) 0 IU/mL . [facility] Serum hepatitis B virus core antibody detectionOrdered By: Dr. Juarez on 06-01-2022 HBV core Ab Ql (S) Negative Negative [facility] Comment on above: Performed at: [employer] [facility] [place] [address] [id number] Director: Izaiah Elena PhD, Phone: [phone] Serum hepatitis B virus surf aleja antibody IgG detectionOrdered By: Dr. Juarez on 06-01-2022 HBV surface IgG Ql (S) Non-Reactive [facility] Comment on above: Non Reactive: Incons istent with immunity less than <10 mIU/mL Reactive: Consistent with immunity greater than or equal to 10 mIU/mL Serum or plasma albumin ely urement (mass/volume)Ordered By: Dr. Juarez on 06-01-2022 Albumin [Mass/Vol] 3.9 g/dL 3.2-5.0 [facility] Thin prep Papanicolaou smear with manual screeningOrdered By: Dr. Juarez on 06-01-2022 Thin prep Papanicolaou smear with manual screening 6 U/L 15-37 [facility] Thin prep Papanicolaou smear with manual screening Comment . [facility] Comment on above: QuantiFERON-TB Gold Plus [...] smear with manual screening 0 IU/mL . [facility] Thin prep Papanicolaou smear with manual screening > 10.00 IU/mL . [facility] Thin prep Papanicolaou smear with manual screening Negative Negative [facility] Comment on above: No response to [...] Auto (Unsp spec) [#/Vol] 1.14 10*3/uL 0.83-4.51 [facility] Work Phone: Basophil percentageon 2021 Basophil percentage 0-5 SEEN /hpf [facility] Work Phone: Basophils/100 WBC (Bld) 0.3 % 0-1 [facility] Work Phone: Chloride [Moles/Vol] 106 mmol/L 98-107 [facility] Work Phone: Eosinophils/100 WBC (Bld) 0.3 % 0-5 [facility] Work Phone: Glucose [Mass/Vol] 314 mg/dL 74-106 [facility] Work Phone: Comment on above: Glucose result great er than or equal to 200 mg/dLsuggests DIABETES MELLITUS per A.D.A. criteria. Neutrophils (Bld) [#/Vol] 10.0 10*3/uL 2.0-7.7 [facility] Work Phone: Neutrophils/100 WBC (Bld) 83.8 % 47-70 [facility] Work Phone: Potassium [Moles/Vol] 4.1 mmol/L 3.5-5.1 [facility] Work Phone: Sodium [Moles/Vol] 133 mmol/L 136-145 [facility] Work Phone: WBC (Bld) [#/Vol] 11.9 10*3/uL 4.4-11.0 [facility] Work Phone: Beta hCG serum qualon 2021 Beta HCG ( test) Ql Negative [facility] Work Phone: Bilirubin Test strip Ql (U)o n 10-30-2021 Bilirubin Ql (U) Negative Negative [facility] Work Phone: Blood erythrocytes count (nu mber/volume)on 10-30-2021 RBC (Bld) [#/Vol] 6.11 10*6/uL 4.2-5.4 [facility] Work Phone: Blood hemoglobin measurement (mass/volume)on 10-30-2021 Hemoglobin (Bld) [Mass/Vol] 18.8 g/dL 12.0-15.0 [facility] Work Phone: Comment on above: CRITICAL VALUE VERIF IED. CALLED TO AVILA LUTZ10/30/21 1432 Sujatha Matta.RESULTS READ BACK BY SAME . Blood lymphocytes/100 leukoc yteson 10-30-2021 Lymphocytes/100 WBC (Bld) 9.5 % 19-41 [facility] Work Phone: Blood monocytes/100 leukocyt eson 10-30-2021 Monocytes/100 WBC (Bld) 5.3 % 0-10 [facility] Work Phone: Blood platelet mean volumeon 10-30-2021 Platelet mean volume (Bld) [Entitic vol] 10.3 fL 6.2-12.0 [facility] Work Phone: Determination of erythrocyte mean corpuscular volume (MCV)on 10-30-2021 MCV (RBC) [Entitic vol] 90.7 fL 81-99 [facility] Work Phone: Hematocrit Auto (Bld) [Volum e fraction]on 10-30-2021 Hematocrit (Bld) [Volume fraction] 55.4 % 37-47 [facility] Work Phone: Ketones Test strip Ql (U)on 10-30-2021 Ketones Ql (U) 15 mg/dl Negative [facility] Work Phone: Laboratory - Chemistry and C hemistry - challengeon 10-30-2021 CO2 [Moles/Vol] 25.0 mmol/L 21.0-32.0 [facility] Work Phone: Urea nitrogen/Creatinine [Mass ratio] 9.1 mg/mg 10-20 [facility] Work Phone: Laboratory - Hematology and Cell countson 10-30-2021 Erythrocyte distribution width (RBC) [Entitic vol] 38.4 fL 35.1-43.9 [facility] Work Phone: Erythrocyte distribution width (RBC) [Ratio] 11.5 % 11.6-14.6 [facility] Work Phone: Immature granulocytes/100 WBC (Bld) 0.800 % 0.0-0.9 [facility] Work Phone: Comment on above: IG% - Immature Granu locytes (promyelocytes, myelocytes and metamyelocytes) > 1% indicates that a LEFT SHIFT is Present. MCH (RBC) [Entitic mass] 30.8 pg 27.0-32.0 [facility] Work Phone: Nucleated RBC/100 WBC (Bld) [Ratio] 0 % 0-5 [facility] Work Phone: MCHC Auto (RBC) [Mass/Vol]on 10-30-2021 MCHC (RBC) [Mass/Vol] 33.9 g/dL 32-36 [facility] Work Phone: Mucus LM Ql (Urine sed)on Mucus Ql (Urine sed) 0 SEEN /hpf [facility] Work Phone: Nitrite Test strip Ql (U)on 10-30-2021 Nitrite Ql (U) Negative Negative [facility] Work Phone: No Panel Informationon 10-30 Estimated Creatinine Clearance Calc 63.27 ml/min [facility] Work Phone: Estimated GFR (MDRD) Amer 79 mL/min >60 [facility] Work Phone: Comment on above: GFR Calc Estimated GFR (MDRD) Non-Af Amer 65 mL/min >60 [facility] Work Phone: Comment on above: Non- GFR Calc Platelets bldon 10-30-2021 Platelets (Bld) [#/Vol] 216 10*3/uL 150-450 [facility] Work Phone: Protein Test strip Ql (U)on 10-30-2021 Protein Ql (U) 30 mg/dl Negative [facility] Work Phone: Review by pathologiston Pathologist review Roger (Unsp spec) [Interp] November [facility] Work Phone: Serum or plasma calcium ely urement (mass/volume)on 10-30-2021 Calcium [Mass/Vol] 8.9 mg/dL 8.5-10.1 [facility] Work Phone: Serum or plasma creatinine m easurement (mass/volume)on 10-30-2021 Creatinine [Mass/Vol] 0.99 mg/dL 0.55-1.02 [facility] Work Phone: Comment on above: The validity of the calculated GFR & GFRAA in patients over 70 years has not been determined. Clinical correlation is essential. Serum or plasma urea nitroge n measurement (mass/volume)on 10-30-2021 Urea nitrogen [Mass/Vol] 9 mg/dL 7-18 [facility] Work Phone: Squamous epithelial cells de tection in urine sediment by light microscopyon 10-30-2021 Epithelial cells.squamous LM Ql (Urine sed) 0 SEEN /hpf [facility] Work Phone: Thin prep Papanicolaou smear with manual screeningon 10-30-2021 Thin prep Papanicolaou smear with manual screening 2 5-15 [facility] Work Phone: Urine blood detectionon RBC Ql (U) 250 /ul Negative [facility] Work Phone: RBC Ql (U) 50-100 SEEN /hpf [facility] Work Phone: Urine clarityon 10-30-2021 Clarity (U) Clear Clear [facility] Work Phone: Urine color determinationon 10-30-2021 Color (U) Yellow Yellow [facility] Work Phone: Urine glucose detectionon Glucose Ql (U) 1000 mg/dl Normal [facility] Work Phone: Urine leukocyte esterase det ection by dipstickon 10-30-2021 Leukocyte esterase Test strip Ql (U) 25 /ul Negative [facility] Work Phone: Urine pHon 10-30-2021 pH (U) 6.0 [pH] [facility] Work Phone: Urine sediment bacteria coun t by microscopy (number/high power field)on 10-30-2021 Bacteria LM.HPF (Urine sed) [#/Area] 2 /[HPF] None Seen [facility] Work Phone: Urine specific gravity measu rementon 10-30-2021 Specific gravity (U) [Rel density] 1.015 [facility] Work Phone: Urobilinogen Auto test strip Ql (U)on 10-30-2021 Urobilinogen Ql (U) Normal mg/dl Normal [facility] Work Phone: CR Chest PA/LATon 01-01-2020 CR Chest PA/LAT Patient Name: KYRA GAMBLE Diagnostic Radiology Exam Date/Time 01/01/2020 15:05:30 EDT Exam CR Chest PA/LAT Ordering Physician MD BOGDAN, REESE Avila Accession Number [id number] CPT4 Codes 53101 () Reason For Exam rib pain Report [...] Transcribed Date and Time: 01/01/2020 3:[address] [facility] CR Ribs 2 Views Righton 12-22 CR Ribs 2 Views Right Patient Name: KYRA ALVARADO Diagnostic Radiology Exam Date/Time 01/01/2020 15:05:30 EDT Exam CR Ribs 2 Views Right Ordering Physician MD MCFADDEN RICHARD H Accession Number [id number] CPT4 Codes 75031 () Reason For Exam rib pain Report [...] Transcribed Date and Time: 01/01/2020 3:[address] [facility] XR CHEST STANDARD (2 VW)on 0 01-01-2020 Patient Name: KYRA GAMBLE ---Diagnostic Radiology--- Exam Date/Time 01/01/2020 15:05:30 EDT Exam CR Chest PA/LAT Ordering Physician MD MCFADDEN RICHARD H Accession Number [id number] CPT4 Codes 73525 () Reason For Exam rib pain Report [...] or CT chest. Report Dictated on Workstation: [id number] --- Final --- Dictating Physician: MD MITCHELL JOHN Signed Date and Time: 01/01/2020 3:25 pm Signed by: MD MITCHELL JOHN Transcribed Date and Time: 01/01/2020 3:26 [place], [place] [facility] Incoming Radiology Results From [facility] - 01/01/2020 3:27 PM EDT Patient Name: KYRA GAMBLE ---Diagnostic Radiology--- Exam Date/Time 01/01/2020 15:05:30 EDT Exam CR Chest PA/LAT Ordering Physician MD MCFADDEN RICHARD H Accession Number [id number] CPT4 Codes 25073 () Reason For Exam rib pain Report [...] JOHN Transcribed Date and Time: 01/01/2020 3:26 [place], [place] XR RIBS RIGHT (2 VIEWS)on Patient Name: KYRA GAMBLE ---Diagnostic Radiology--- Exam Date/Time 01/01/2020 15:05:30 EDT Exam CR Ribs 2 Views Right Ordering Physician MD MCFADDEN RICHARD H Accession Number [id number] CPT4 Codes 36755 () Reason For Exam rib pain Report [...] or CT chest. Report Dictated on Workstation: [id number] --- Final --- Dictating Physician: MD MITCHELL JOHN Signed Date and Time: 01/01/2020 3:25 pm Signed by: MD MITCHELL JOHN Transcribed Date and Time: 01/01/2020 3:26 [place], [place], [facility] Incoming Radiology Results From [facility] - 01/01/2020 3:26 PM EDT Patient Name: KYRA GAMBLE ---Diagnostic Radiology--- Exam Date/Time 01/01/2020 15:05:30 EDT Exam CR Ribs 2 Views Right Ordering Physician MD BOGDAN, REESE [facility] Accession Number [id number] CPT4 Codes 69120 () Reason For Exam rib pain Report [...] JOHN Transcribed Date and Time: 01/01/2020 3:26 [place], [place] Progress Noteon 05-11-2018 [employer] Internship Authentication Interface Message Text Via family member, pt would like to try eucrisa for atopic derm, Rx sent. RK Normal [facility] Vital Signs Date Time Vital Sign Value Performing Clinician Quin delgadillo 08-03-2024 12:59-0500 Body height 162.56 cm No Primary Care Physician [facility] 08-03-2024 12:59-0500 Body mass index (BMI) [Ratio] 28.6 kg/m2 No Primary Care Physician [facility] 08-03-2024 12:59-0500 Body temperature 97.2 [degF] No Primary Care Physician [facility] 08-03-2024 12:59-0500 Body weight 75.74 kg No Primary Care Physician [facility] 08-03-2024 12:59-0500 Diastolic blood pressure 133 mm[Hg] No Primary Care Physician [facility] 08-03-2024 12:59-0500 Heart rate 84 /min No Primary Care Physician [facility] 08-03-2024 12:59-0500 Respiratory rate 16 /min No Primary Care Physician [facility] 08-03-2024 12:59-0500 SaO2% (BldA) [Mass fraction] 100 % No Primary Care Physician [facility] 08-03-2024 12:59-0500 Systolic blood pressure 161 mm[Hg] No Primary Care Physician [facility] 08-03-2022 13:04-0500 Body height 162.56 cm [facility] 08-03-2022 13:04-0500 Body mass index (BMI) [Ratio] 29.6 kg/m2 [facility] 08-03-2022 13:04-0500 Body temperature 97.2 [degF] [facility] 08-03-2022 13:04-0500 Body weight 78.24 kg [facility] 08-03-2022 13:04-0500 Diastolic blood pressure 121 mm[Hg] [facility] 08-03-2022 13:04-0500 Heart rate 110 /min [facility] 08-03-2022 13:04-0500 Respiratory rate 20 /min [facility] 08-03-2022 13:04-0500 SaO2% (BldA) [Mass fraction] 96 % [facility] 08-03-2022 13:04-0500 Systolic blood pressure 162 mm[Hg] [facility] 10-30-2021 16:16-0400 Heart rate 64 /min [facility] Work Phone: 10-30-2021 16:16-0400 SaO2% (BldA) [Mass fraction] 99 % [facility] Work Phone: 10-30-2021 15:22-0400 Diastolic blood pressure 89 mm[Hg] [facility] Work Phone: 10-30-2021 15:22-0400 Respiratory rate 16 /min [facility] Work Phone: 10-30-2021 15:22-0400 Systolic blood pressure 143 mm[Hg] [facility] Work Phone: 10-30-2021 13:32-0400 Body height 162.56 cm [facility] Work Phone: 10-30-2021 13:32-0400 Body mass index (BMI) [Ratio] 30.9 kg/m2 [facility] Work Phone: 10-30-2021 13:32-0400 Body temperature 97 [degF] [facility] Work Phone: 10-30-2021 13:32-0400 Body weight 81.64 kg [facility] Work Phone: Encounters Encounter Date Encounter Type Care Provider Facility Start: 12-02-2024 End: 12-02-2024 ambulatory Praveena REYNA [place] Start: 11-26-2024 End: 11-26-2024 ambulatory No Primary Care Physician [facility] Work Phone: Start: 11-26-2024 End: 11-26-2024 Patient encounter procedure Praveena Cook PA-C -Laboratory, Specimen Work Phone: Start: 11-26-2024 End: 11-26-2024 Patient encounter procedure Praveena Cook PA-C -[facility] Work Phone: Start: 11-26-2024 End: 11-26-2024 ambulatory Praveena REYNA [facility] Start: 11-26-2024 End: 11-26-2024 ambulatory Praveena REYNA Facility:[facility] Start: 08-03-2024 End: 08-03-2024 Emergency department patient visit Dr. Sean Waite DO -Emergency Department Work Phone: Start: 12-13-2023 End: 12-13-2023 ambulatory No Primary Care Physician Facility:[facility] Start: 10-25-2022 End: 10-25-2022 ambulatory [facility] Work Phone: Start: 10-25-2022 End: 10-25-2022 Patient encounter procedure [facility] Ultrasound Start: 10-19-2022 End: 10-19-2022 ambulatory [facility] Work Phone: Start: 10-19-2022 End: 10-19-2022 Patient encounter procedure [facility]-Outpatient Breast Imaging Start: 09-21-2022 End: 09-21-2022 ambulatory [facility] Work Phone: Start: 09-21-2022 End: 09-21-2022 Patient encounter procedure [facility]-Radiology, [facility] Start: 08-03-2022 End: 08-03-2022 Patient encounter procedure [facility] Start: 08-01-2022 End: 08-01-2022 ambulatory [facility] Work Phone: Start: 08-01-2022 End: 08-01-2022 Patient encounter procedure [facility] Start: 06-01-2022 End: 06-01-2022 ambulatory [facility] Work Phone: Start: 06-01-2022 End: 06-01-2022 Patient encounter procedure [facility] Start: 10-30-2021 End: 10-30-2021 Emergency department patient visit [facility]-Emergency Department Start: 01-22-2020 End: 01-22-2020 Subsequent [...] Detail Author Start: 11-26-2024 Source specific culture [facility] Start: 11-26-2024 Anaerobic microbial culture Anaerobic Culture [facility] Start: 08-03-2024 [facility] Start: 03-24-2020 Influenza vaccination [place], [place] Start: 2018 Lipid panel Lipid screen [place] Start: 09-18-2016 HbA1c (Bld) [Mass fraction] A1C test (Diabetic or Prediabetic) [place], [place] Start: 1999 Screening for malignant neoplasm of cervix Cervical cancer screen [place], [place] Start: 1997 DTaP/Tdap/Td vaccine (1 - Tdap) DTaP/Tdap/Td vaccine (1 - Tdap) [place], [place] Start: 1993 HIV screening HIV screen [place], [place] Start: 1984 Pneumococcal 0-64 years Vaccine (1 of 1 - PPSV23) Pneumococcal 0-64 years Vaccine (1 of 1 - PPSV23) [place], [place] Patient Education [facility] Work Phone: Patient referral [facility] Work Phone: Payers Date Payer Category Payer Self-pay [id number] 2023 Medicaid [id number] 2023 Private Health Insurance [id number] 2016 Unknown [employer] xxxxxxxxxxx 2016-Present [phone] [address] [place] [address] xxxxxxxxxxx [id number] Unknown [facility] [id number] Unknown [id number] Unknown [id number] Unknown [id number] Unknown 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) [place] Sex Assigned At Not on file [place] Start: 10-30-2021 End: 08-03-2022 Tobacco smoking status NHIS Unknown if ever smoked [facility] Start: 02-27-2019 None [facility] Start: 02-27-2019 Spouse/ Signif icant Other [facility] Start: 1980 Sex Assigned At Female W [facility] Evaluation note 11-26-2024 Note Date & Type Note Facility 11-26-2024 Evaluation note Diagnosis Onset Date Resolution Abscess of buttock, right acute November 26, 2024 1: 58pm [facility] Work Phone: Evaluation note Note Date & Type Note Facility Evaluation note No assessment information availa ble [facility] Work Phone: Evaluation note Note Date & Type Note Facility Evaluation note Diagnosis Onset Date Acid reflux acute Epigastric pain acute [facility] Work Phone: Reason for referral (narrative) Note Date & Type Note Facility Reason for referral (narrative) No reason for referral information available [facility] Work Phone: Summary Purpose Family History No Family History Records Found Relationship Condition Age at Onset Recorded Date/T tigre mother Diabetes mellitus Unknown Hypertension Unknown father Hypertension Unknown Advance Directives No Advanced Directives Records FoundDocuments on File Type Date Recorded Patient Reconditioner Expl anation Advance Directives and Living Will Power of Business Development Agent Advance Directive Response Recorded Date/ Time Living Will No October 30, 2021 2:02pm Power of Business Development Agent No October 30 2:02pm Advance Directive Response Recorded Date/ Time Living Will No October 30, 2021 1:02pm Power of Business Development Agent No October 30 1:02pm Advance Directive Response Recorded Date/ Time Living Will No August 03 2:49pm Do you have a Healthcare Power of Business Development Agent? No August 03, 2024 2:49pm Chief Complaint [...] section and content) DATE CREATED AUTHOR 02/22/2019 [facility] DATE CREATED AUTHOR AUTHOR'S ORGANIZ ATION 02/08/2020 [facility] DATE CREATED AUTHOR AUTHOR'S ORGANIZ ATION 12/03/2024 [facility] Goals (unrecognized section and content) Goals [...] Primary Care Provider Active CAMACHO ANN , GAS METER CHECKER-C Attending Provider, Referring Provider Active Team Status: Inactive Member Role Status Dates No Primary Care Physician Primary Care Provider Active Liz Ellsworth NP, GAS METER CHECKER-C Attending Provider Active Team Status: Inactive Member Role Status Dates Reese Mcfadden OLS Primary Care Provider Active Dr. Paul Erazo MD Attending Provider Active No Primary Care Physician Referring Provider Active Team Status: Inactive Member Role Status Dates CAMACHO ANN , GAS METER CHECKER-C Attending Provider Active No Primary Care Physician Primary Care Provider Active Team Status: Inactive Member Role Status Dates Reese Mcfadden OLS Primary Care Provider Active CAMACHO SETH , GAS METER CHECKER-C Attending Provider, Referring Provider Active Team Status: Active Member Role Status Dates No Primary Care Physician Primary Care Provider Active CAMACHO SETH , GAS METER CHECKER-C Attending Provider Active Team Status: Inactive Member Role Status Dates No Primary Care Physician Primary Care Provider Active CAMACHO SETH , GAS METER CHECKER-C Attending Provider Active Team Status: Active Member Role Status Dates Dr. Liz Vail DO Family Provider Active [facility] Primary Care Provider A ctive Team Status: [...] November 26, 2024 End: November 26, 2024 [facility] Primary Care Provider A ctive Start: November 26, 2024 End: November 26, 2024 [facility] Referring Provider Acti ve Start: November 26, 2024 End: November 26, 2024 Team Status: Inactive Member Role Status Dates [facility] Primary Care Provider A ctive Start: November [...] BE BASED ON THE PRIMARY CLINICAL RECORDS. [employer] provides no warranty or guarantee of the accuracy or completeness of information in this document.
== END | disposition home or self-care (01) ==
DX: R10.A2 Flank pain, left side (principal)
CPT/HCPCS: 76705; 76770